=== PATIENT | female | born 1990 | race Caucasian/White ===

== ENCOUNTER 2021-12-30 12:40 | Emergency (ER) | payer BC, SELFPAY ==
[2021-12-30 12:45] VITALS: BP 133/80; PULSE 98; RESP 14; TEMP 36.5; O2SAT 100
--- NOTE | 2021-12-30 13:19 | ED.URI ---
HPI - URI/Sore Throat General Chief Complaint: Upper Respiratory Infection Stated Complaint: sinus infection Time Seen by Provider: 12/30/21 13:20 Source: patient, RN notes reviewed and old records reviewed Mode of arrival: ambulatory Limitations: no limitations History of Present Illness HPI Narrative: 31 year old female presents to [facility] care with complaints of head and sinus congestion for the past 3 days with headache. Patient reports that initially she though it was allergies and took some allergy medications with no improvement in her symptoms, She reports history of asthma and states that she has not experienced any shortness of breath or severe cough she has not had to use her inhaler recently. Patient denies any known fevers, chills or body aches,states fatigue. MD elicited complaint: rhinorrhea, nasal congestion and sinus pain Pertinent past history: asthma Onset (ago): day(s) (3) Related Data Home Medications Medication Instructions Recorded Confirmed fluticasone furoate 100 ea inhalation 12/30/21 mcg-vilanterol 25 mcg/dose inhalation powder (Breo Ellipta) spironolactone 100 mg tablet tablet 12/30/21 Allergies Allergy/AdvReac Type Severity Reaction Status Date / Time Sulfa (Sulfonamide Allergy Intermediate Rash Verified 12/30/21 13:04 Antibiotics) Review of Systems Review of Systems: CONSTITUTIONAL: Denies fever, chills, or sweats. EYES: Denies visual changes, redness, or discharge. ENT: Positive for rhinorrhea, congestion,no sore throat, or otalgia. CARDIOVASCULAR: Denies chest pain, palpitations, or edema. RESPIRATORY: Denies acute cough or dyspnea. GASTROINTESTINAL: Denies abdominal pain, nausea, vomiting, or diarrhea. GENITOURINARY: Denies dysuria or hematuria. SKIN: Denies rash or itching. MUSCULOSKELETAL: Denies back pain, joint pain, or myalgia. NEUROLOGIC: Positive for frontal headache,no numbness, or weakness. PSYCHIATRIC: Denies anxiety or depression. [facility] Past Medical History Medical History (Updated 12/31/21 @ 22:27 by Claudia oRcha NP) Asthma Social History Social History (Updated 12/31/21 @ 22:28 by Claudia Rocha NP) Smoking status: Never smoker Alcohol intake: current Alcohol use details: social Substance use: never Living arrangements: with family Gender identity (if verbalized by the patient): Female Comments At time of signature agree with nursing documentation of medical, surgical, family, and social history. There is no relevant family history that is pertinent to presenting complaint. Exam Narrative: GENERAL: Well-appearing, well-nourished, and in no acute distress. HEAD: Normocephalic, atraumatic. EYES: PERRLA and EOM ENT: Nares red with swollen turbinates, clear nasal rhinorrhea no epistaxis. Mucous membranes moist.TM's normal with good light reflex, throat mild redness with no lesion or exudates or tonsil swelling, uvula midline, post nasal discharge. NECK: Supple.no lymphadenopathy CHEST: Clear to auscultation. No respiratory distress.no acute cough or any tachypnea, SAO2 100% on room air HEART: Regular rate and rhythm. No murmur heard. Normal peripheral pulses. ABDOMEN: Soft, nontender, nondistended, normal active bowel sounds. EXTREMITIES: Normal range of motion. No edema. SKIN: Warm, dry, no rash. NEURO: No focal deficits. Alert and oriented x3. Course Course Level of Care: Express Care Visit Vital Signs Vital signs: Vital Signs Temperature 36.5 C 12/30/21 12:45 Pulse Rate 98 12/30/21 12:45 Respiratory Rate 14 12/30/21 12:45 Blood Pressure 133/80 12/30/21 12:45 Pulse Oximetry 100 12/30/21 12:45 Oxygen Delivery Room Air 12/30/21 12:45 Temperature 36.5 C 12/30/21 12:45 Pulse Rate 98 12/30/21 12:45 Respiratory Rate 14 12/30/21 12:45 Blood Pressure 133/80 12/30/21 12:45 Pulse Oximetry 100 12/30/21 12:45 Oxygen Delivery Room Air 12/30/21 12:45 MDM - URI/Sore Throat Differential
== END 2021-12-30 13:33 | disposition home or self-care (01) ==
PROVIDERS: Emergency Provider Registered Nurse
DX: J32.8 Other chronic sinusitis (principal); B96.89 Other specified bacterial agents as the cause of diseases classified elsewhere
CPT/HCPCS: 99213; G0463

== ENCOUNTER 2022-03-17 10:43 | Emergency (ER) | payer OTHER, BC, SELFPAY ==
--- NOTE | ~2022-03-17 | XR_ITS ---
XR foot RT min 3V DATE: 03/17/2022 11:02 INDICATION: Dropped a box on the right foot. Distal foot pain. TECHNIQUE: 4 views COMPARISON: None FINDINGS: No fracture, dislocation, periosteal reaction or bone destruction. Joint spaces are preserv ed. No erosive change. IMPRESSION: Negative Reviewed, dictated and finalized at location B. IMPRESSION: Negative
--- NOTE | 2022-03-17 10:49 | ED.LOWEXIN ---
HPI - Extremity Injury (Lower) General Stated Complaint: Right Foot Pain Time Seen by Provider: 03/17/22 11:15 Source: patient and RN notes reviewed Mode of arrival: ambulatory Limitations: no limitations History of Present Illness HPI Narrative: 31-year-old female presents with concern for right foot pain. Reports an hour and a half ago at work a heavy object fell on the top of her foot. She reports pain that radiates to the first toe and to the lateral foot. She denies any open skin. She denies decree strength, sensation, range of motion. Reports small bruising and swelling. MD complaint: foot injury Related Data Home Medications Medication Instructions Recorded Confirmed fluticasone furoate 100 ea inhalation 12/30/21 mcg-vilanterol 25 mcg/dose inhalation powder (Breo Ellipta) spironolactone 100 mg tablet tablet 12/30/21 norgestimate-ethinyl estradiol tablet 03/17/22 0.18 mg/0.215mg/0.25mg-35 mcg(28)tablet (Tri-Sprintec (28)) Allergies Allergy/AdvReac Type Severity Reaction Status Date / Time Sulfa (Sulfonamide Allergy Intermediate Rash Verified 12/30/21 13:04 Antibiotics) Review of Systems Review of Systems: CONSTITUTIONAL: Denies malaise, chills, sweats, or fever. SKIN: Denies rash or itching, open skin, laceration, abrasion, redness, warmth, swelling. MUSCULOSKELETAL: Reports right foot pain mild mild swelling NEUROLOGIC: Denies numbness, weakness All systems reviewed & are unremarkable except as noted in HPI and below PMFSH Past Medical History Medical History (Updated 03/17/22 @ 11:19 by Mercedez Perez NP) Asthma Social History Social History (Updated 12/31/21 @ 22:28 by Claudia Rocha NP) Smoking status: Never smoker Alcohol intake: current Alcohol use details: social Substance use: never Gender identity (if verbalized by the patient): Female Comments At time of signature, agree with nursing past medical, surgical, social and family history. There is no relevant family history pertinent to the presenting complaint Exam Narrative: GENERAL: Well-appearing, well-nourished, and in no acute distress. HEAD: Normocephalic, atraumatic. EYES: PERRLA, conjunctivae clear NECK: Supple. CHEST: Speaks in full sentences. No respiratory distress. HEART: Regular rate and rhythm. Normal and equal peripheral pulses. EXTREMITIES: Right foot, digits of right foot have normal strength and sensation, normal range of motion. Very minimal dorsal edema with very small amount of ecchymosis. 5/5 strength with ankle and digit flexion and extension. Normal sensation with sensitivity to light touch and pain. Mild dorsal tenderness. No open wounds, no skin tenting, no devitalized tissue or atrophy, no trophic changes, no obvious deformity, alignment normal, nearby joints and structures intact. Distal pulses palpable and equal bilaterally, skin warm, dry, pink. Capillary refill less than 3 seconds. SKIN: Warm, dry, no rash. NEURO: Alert and oriented x3. PSYCH: Normal mood and affect Course Course Emergency Course: Patient is aware of diagnosis, understands and agrees to treatment plan. Anticipatory guidance given. Patient agrees to follow-up as directed and is aware of reasons to seek care at the emergency department. Portions of this record may have been created with voice recognition software Level of Care: Express Care Visit Vital Signs Vital signs: Reviewed. MDM - Extremity Injury (Lower) MDM Narrative Medical decision making narrative: Patients injury and pain is consistent with musculoskeletal etiology. No signs of neurological or vascular compromise on exam. Compartments and tissues are soft without signs of compartment syndrome. Pain is felt appropriate for further evaluation on an outpatient basis. Critical Care Time Critical Care Time Critical Care Time: No Discharge Plan Discharge Clinical Impression: Contusion of foot, right Patient Disposition: Home, S
[2022-03-17 10:52] VITALS: BP 150/96; PULSE 92; RESP 16; TEMP 36.3; O2SAT 100
== END 2022-03-17 11:22 | disposition home or self-care (01) ==
PROVIDERS: Emergency Provider Nurse Practitioner
DX: S90.31XA Contusion of right foot, initial encounter (principal); W20.8XXA Other cause of strike by thrown, projected or falling object, initial encounter; Y99.0 Civilian activity done for income or pay; J45.909 Unspecified asthma, uncomplicated
CPT/HCPCS: 73630; 99213; G0463

== ENCOUNTER 2022-09-13 11:43 | Outpatient (CLI) | payer BC, SELFPAY ==
[2022-09-13 19:39] LABS: Kit Draw Collected
== END 2022-09-13 11:44 | disposition home or self-care (01) ==
LOC: ANHGOSHLAB 11:46
PROVIDERS: PCP Family Medicine; Visit Provider Family Medicine
DX: R53.83 Other fatigue (principal); R73.9 Hyperglycemia, unspecified; E55.9 Vitamin D deficiency, unspecified; Z13.220 Encounter for screening for lipoid disorders
CPT/HCPCS: 36415

== ENCOUNTER 2023-03-20 16:01 | Inpatient (IN) | payer BC, SELFPAY ==
[2023-03-20] VITALS (30 sets, daily range): BP systolic 133–173; BP diastolic 73–113; PULSE 100–113; TEMP 36.3–36.8; O2SAT 96–100; BMI 45.3
[2023-03-20] MEDS: DINOPROSTONE 10 MG VAG INSERT VAGINAL (17:30)
[2023-03-20 17:39] LABS: Basophils Absolute Auto 0.1 K/mm3 (0.0-0.1); Basophils Percent Auto 0.4 % (0.2-1.2); Eosinophils Absolute Auto 0.2 K/mm3 (0-0.3); Eosinophils Percent Auto 1.2 % (0-4.4); Hematocrit 31.6 % (37.0-47.0); Hemoglobin 10.2 g/dL (12.0-15.0); Immature Granulocyte Absolute 0.12 K/mm3 (0.00-0.031); Immature Granulocyte Percent A 0.9 % (0-0.5); Lymphocytes Absolute Auto 1.87 K/mm3 (0.9-3.2); Lymphocytes Percent Auto 14.4 % (18.3-44.2); Mean Corpuscular HGB Conc 32.3 g/dl (32-36); Mean Corpuscular Hemoglobin 28.6 pg (26-34); Mean Corpuscular Volume 88.5 fl (80-100); Mean Platelet Volume 11.5 fl (7.4-10.4); Monocytes Absolute Auto 1.2 K/mm3 (0.1-0.6); Monocytes Percent Auto 8.8 % (2.6-8.5); Neutrophils Absolute Auto 9.7 K/mm3 (1.3-6.7); Neutrophils Percent Auto 74.3 % (45.5-73.1); Platelet Count Result 317 k/mm3 (150-375); Red Blood Count 3.57 M/mm3 (4.2-5.4); Red Cell Distribution Width 13.8 % (11.5-14.5)
[2023-03-20 17:49] LABS: Alanine Aminotransferase 21 U/L (6-35); Albumin Level 3.5 g/dL (3.5-5.1); Alkaline Phosphatase 119 U/L (38-126); Anion Gap 6 mmol/L (8-16); Aspartate Amino Transferase 25 U/L (14-36); Bilirubin,Total 0.2 mg/dL (0.2-1.3); Blood Urea Nitrogen 8 mg/dL (7-17); Calcium 8.7 mg/dL (8.4-10.2); Carbon Dioxide 23 mmol/L (22-30); Chloride 103 mmol/L (98-107); Estimated CRCL calculation 149 ml/min; Estimated Glomerular Filt Rate > 60; Glucose 85 mg/dL (65-110); Potassium 3.8 mmol/L (3.4-5.0); Sodium 132 mmol/L (137-145); Uric Acid 4.3 mg/dL (2.5-7.5)
--- NOTE | 2023-03-20 18:16 | WPDANESEPP ---
Anes - Eval Pre Procedure Procedure: labor epidural Date/Time: 03/20/23 18:16 Surgeon: sully Preop Diagnosis: pain during labor Pre Op Diagnosis: Induction of Labor Patient Data Age: 32 Gender: F Height: 1.63 m Weight: 120 kg Last Vital Signs Temp 36.6 C 03/20/23 17:00 Pulse 102 H 03/20/23 18:01 BP 136/89 03/20/23 18:01 O2 Del Method Room Air 03/20/23 17:36 Allergies Allergy/AdvReac Type Severity Reaction Status Date / Time Sulfa (Sulfonamide Allergy Intermediate Rash Verified 03/05/23 13:25 Antibiotics) Home Medications Medication Instructions Recorded Confirmed Type albuterol sulfate 90 mcg/actuation 2 puff inhalation Q4H PRN Wheezing 09/13/22 03/05/23 History aerosol inhaler (Ventolin HFA) loratadine 10 mg tablet 10 mg PO DAILY 09/13/22 03/05/23 History prenat.vits,justina,[id number] 1 tablet PO DAILY 09/13/22 03/05/23 History cholecalciferol (vitamin D3) 125 125 mcg PO DAILY 10/18/22 03/05/23 History mcg (5,000 unit) capsule nifedipine 30 mg tablet,extended 30 mg PO DAILY 03/05/23 03/05/23 History release 24 hr fluticasone furoate 100 1 inh inhalation DAILY 03/20/23 03/20/23 History mcg-vilanterol 25 mcg/dose inhalation powder (Breo Ellipta) Laboratory Tests 03/20/23 16:30 WBC 13.0 H K/mm3 (4.5-10.0) RBC 3.57 L M/mm3 (4.2-5.4) Hgb 10.2 L g/dL (12.0-15.0) Hct 31.6 L % (37.0-47.0) MCV 88.5 fl (80-100) MCH 28.6 pg (26-34) MCHC 32.3 g/dl (32-36) RDW 13.8 % (11.5-14.5) Plt Count 317 k/mm3 (150-375) MPV 11.5 H fl (7.4-10.4) Immature Gran % (Auto) 0.9 H % (0-0.5) Neut % (Auto) 74.3 H % (45.5-73.1) Lymph % (Auto) 14.4 L % (18.3-44.2) [place] % (Auto) 8.8 H % (2.6-8.5) Eos % (Auto) 1.2 % (0-4.4) Baso % (Auto) 0.4 % (0.2-1.2) Lymph # (Auto) 1.87 K/mm3 (0.9-3.2) [place] # (Auto) 1.2 H K/mm3 (0.1-0.6) Eos # (Auto) 0.2 K/mm3 (0-0.3) Baso # (Auto) 0.1 K/mm3 (0.0-0.1) Abs Immat Gran (auto) 0.12 H K/mm3 (0.00-0.031) Absolute Neuts (auto) 9.7 H K/mm3 (1.3-6.7) Absolute Nucleated RBC 0.0 K/mm3 (0.0-0.012) Nucleated RBC % 0.0 % (0.0-0.2) Sodium 132 L mmol/L (137-145) Potassium 3.8 mmol/L (3.4-5.0) Chloride 103 mmol/L (98-107) Carbon Dioxide 23 mmol/L (22-30) Anion Gap 6 L mmol/L (8-16) BUN 8 mg/dL (7-17) Creatinine 0.60 L mg/dL (0.7-1.0) Estim Creat Clear Calc 149 ml/min Estimated GFR > 60 (59 - ) Glucose 85 mg/dL (65-110) Uric Acid 4.3 mg/dL (2.5-7.5) Calcium 8.7 mg/dL (8.4-10.2) Total Bilirubin 0.2 mg/dL (0.2-1.3) AST 25 U/L (14-36) ALT 21 U/L (6-35) Alkaline Phosphatase 119 U/L (38-126) Total Protein 7.0 g/dL (6.3-8.2) Albumin 3.5 g/dL (3.5-5.1) RPR Pending HIV 1&2 Ab/P24 Ag 4thGn Pending Blood Type Pending Antibody Screen Pending Patient hx anesthesia problems: none Family hx anesthesia problems: none Results Review: All pre-operative results and documents have been reviewed as part of the pre-operative evaluation. [facility] Past Medical History Medical History (Updated 03/20/23 @ 18:16 by Martha Guzman CRNA) Allergies Asthma IUP (intrauterine ), incidental Morbid obesity with BMI of 50.0-59.9, adult Family History Family History Father Asthma Hypertension Mother Diabetes mellitus Depression Anxiety Sibling Anxiety Depression Grandparent Depression Anxiety Cancer Social History Social History Smoking status: Never smoker Second hand tobacco smoke exposure: No Alcohol intake: current Alcohol use details: social Substance use: never Lack of Transportation: No Lack of Food: Never True Current Housing: I Have Housing Concerne
[2023-03-20 18:28] LABS: HIV 1/2 Ab P24 Ag Result Negative (Negative)
[2023-03-21] VITALS (259 sets, daily range): BP systolic 91–167; BP diastolic 56–110; PULSE 91–130; TEMP 36.3–36.8; O2SAT 95–100
[2023-03-21] MEDS: LACTATED RINGERS 1,000 ML 125 ML IV CONT ×3 (07:11→23:38)
[2023-03-21] MEDS: OXYTOCIN 30 UNITS/NS 500 ML 30 UNITS/500 ML BAG 6 UNITS IV CONT (07:12)
[2023-03-21] MEDS: NIFEdipine 30 MG TAB.ER.24 PO (07:13)
--- NOTE | 2023-03-21 07:24 | WPDOBADMIT ---
Obstetrics - Admit Note Admission Note: record reviewed. No pertinent additions to the history and/or any subsequent changes in the physical findings that are not consistent with the expected course of the were found.Chronic HTN,IOL at 38 weeks, SVE 1.5/70/-2 AROM moderate amount of clear, odorless fluid, anticipate vaginal delivery Additions to the history and/or subsequent changes in the physical findings follow. None.
[2023-03-21] MEDS: LABETALOL HCL 100 MG TABLET 200 MG PO ×2 (10:47→12:33)
[2023-03-21 13:53] LABS: Rapid Plasma Reagin Non-Reactive (NonReactive)
[2023-03-21] MEDS: CALCIUM CARBONATE (TUMS) 500 MG (200 MG ELEMENTAL) PO ×2 (14:42→20:54)
[2023-03-22] VITALS (423 sets, daily range): BP systolic 72–179; BP diastolic 30–109; PULSE 89–143; RESP 18; TEMP 36.6–37.5; O2SAT 91–100
[2023-03-22] MEDS: LACTATED RINGERS 1,000 ML 125 ML IV CONT ×3 (01:06→15:19)
[2023-03-22] MEDS: AMPICILLIN 2 GM/NS 100 ML 2 GM/100 ML BAG IVPB (01:08)
[2023-03-22] MEDS: PHENYLEPHRINE 1,000 MCG/10 ML SYRINGE 100 MCG IV PUSH ×3 (02:10→02:20)
[2023-03-22] MEDS: AMPICILLIN 1 GM/NS 50 ML 1 GM/50 ML BAG IVPB ×5 (05:00→21:07)
--- NOTE | 2023-03-22 06:14 | LDADM ---
This patient, Jessica Mosley, was admitted to Labor/Delivery/Recovery 102 on 03/20/23 at 16:01. Plans for labor, pain management and were discussed with patient. Patient/family oriented to hospital policies and general routines including ID bracelet, bed and alarms, visiting hours, pain management, procedures, bathroom and other care routines, personal items, smoking policy, room service/diet and guest tray routines, infant security routines, and visiting hours. Patient/Family are encouraged to report perceived risks to care and to ask questions if they do not understand what they are told or what they should do. See OBIX for further documentation.
--- NOTE | 2023-03-22 06:55 | PM.IMHP ---
H&P: HPI History of Present Illness Date/Time: 03/22/23 06:55 Chief Complaint: at 39.1 weeks gestation, IOL for chronic HTN, pt is comfortable with epidural. BP's are normotensive and denies headaches, visual changes and epigastric pain. has also been complicated by asthma,obesity, and circumvallate placenta. Review of Systems Review of Systems: All systems reviewed & are unremarkable except as noted in HPI and below PMFSH Past Medical History Medical History (Updated 03/20/23 @ 18:16 by Martha Guzman CRNA) Allergies Asthma IUP (intrauterine ), incidental Morbid obesity with BMI of 50.0-59.9, adult Family History Family History Father Asthma Hypertension Mother Diabetes mellitus Depression Anxiety Sibling Anxiety Depression Grandparent Depression Anxiety Cancer Social History Social History Smoking status: Never smoker Second hand tobacco smoke exposure: No Alcohol intake: current Alcohol use details: social Substance use: never Lack of Transportation: No Lack of Food: Never True Current Housing: I Have Housing Concerned About Future Housing: No Difficulty Paying Gas/Electric Bills: No Difficulty Paying for Meds: No Currently Unemployed: No Education: High School Diploma/GED Difficulty w/ Childcare or Family Care: No Living arrangements: with family Gender identity (if verbalized by the patient): Female Spiritual care concerns: No Meds Home Medications and Allergies Home Medications Medication Instructions Recorded Confirmed Type albuterol sulfate 90 mcg/actuation 2 puff inhalation Q4H PRN Wheezing 09/13/22 03/05/23 History aerosol inhaler (Ventolin HFA) loratadine 10 mg tablet 10 mg PO DAILY 09/13/22 03/05/23 History prenat.vits,justina,[id number] 1 tablet PO DAILY 09/13/22 03/05/23 History cholecalciferol (vitamin D3) 125 125 mcg PO DAILY 10/18/22 03/05/23 History mcg (5,000 unit) capsule nifedipine 30 mg tablet,extended 30 mg PO DAILY 03/05/23 03/05/23 History release 24 hr fluticasone furoate 100 1 inh inhalation DAILY 03/20/23 03/20/23 History mcg-vilanterol 25 mcg/dose inhalation powder (Breo Ellipta) Allergies Allergy/AdvReac Type Severity Reaction Status Date / Time Sulfa (Sulfonamide Allergy Intermediate Rash Verified 03/05/23 13:25 Antibiotics) Vital Signs Vital Signs - 24 hr 03/21/23 06:58 03/21/23 07:01 03/21/23 07:03 Temperature Pulse Rate 107 H Blood Pressure 148/105 H Pulse Oximetry 100 99 03/21/23 07:08 03/21/23 07:13 03/21/23 07:18 Temperature Pulse Rate Blood Pressure Pulse Oximetry 100 99 99 03/21/23 07:23 03/21/23 07:28 03/21/23 07:31 Temperature Pulse Rate 109 H Blood Pressure 162/110 H Pulse Oximetry 98 100 03/21/23 07:33 03/21/23 07:38 03/21/23 07:43 Temperature Pulse Rate Blood Pressure Pulse Oximetry 99 99 98 03/21/23 07:48 03/21/23 07:50 03/21/23 07:53 Temperature Pulse Rate 105 H Blood Pressure 165/109 H Pulse Oximetry 99 100 03/21/23 07:58 03/21/23 08:01 03/21/23 08:03 Temperature Pulse Rate 106 H Blood Pressure 164/109 H Pulse Oximetry 98 98 03/21/23 08:08 03/21/23 08:13 03/21/23 08:18 Temperature Pulse Rate Blood Pressure Pulse Oximetry 98 98 98 03/21/23 08:23 03/21/23 08:28 03/21/23 08:31 Temperature Pulse Rate 106 H Blood Pressure 157/99 H Pulse Oximetry 98 97 03/21/23 08:33 03/21/23 08:38 03/21/23 08:43 Temperature 36.4 C L Pulse Rate Blood Pressure Pulse Oximetry 98 98 98 03/21/23 08:48 03/21/23 08:53 03/21/23 08:58 Temperature Pulse Rate Blood Pressure Pulse Oximetry 99 98 98 03/21/23 09:01 03/21/23 09:03 03/21/23 09:08 Temperature Pulse Rate 104 H Blood Pressure 152/98 H
[2023-03-22] MEDS: ACETAMINOPHEN 500 MG TABLET 1000 MG PO (08:13)
[2023-03-22] MEDS: OXYTOCIN 30 UNITS/NS 500 ML 30 UNITS/500 ML BAG 6 UNITS IV CONT (10:09)
--- NOTE | 2023-03-22 14:53 | PC.NURSE ---
1258 - Introductions were made and mother shared how she would like to feed her baby with exclusive . Encouraged mother to place infant [id number] until the first feeding if infant is stable and to wait on the weight to help stabilize, reduce stress, and improve latching by allowing time to explore parent's chest using instincts. Education was shared on how to protect her milk supply with latching infant and/or using hand expression to remove milk if infant doesn't latch in the first hour, then finger feed colostrum to the infant to preserve breast focus. Demonstration given on how to hand express using tool. We discussed mothers questions and concerns. Resources provided with educational trifold for bonding and feeding infant. Mother voiced understanding of information, planning to meet again on the PP floor after delivery and to call if there is a request for assistance.
[2023-03-22] MEDS: LABETALOL HCL 100 MG TABLET 400 MG PO (16:13)
--- NOTE | 2023-03-22 18:00 | PM.OBPNVD ---
OB - PN: Subj Subjective Date/time seen: 03/22/23 18:00 SVE 8-9/90/0, pt comfortable FHR 135 min to moderate variability contractions irregular OB - PN: Obj Data Labs 03/20/23 16:30 03/20/23 16:30 OB - PN A/P Time Spent With Patient Time: Total time spent is greater than 50% in coordination of care (as documented) at patient's floor/unit and/or counseling patient:
[2023-03-22] MEDS: LABETALOL HCL INJ 100 MG/20 ML VIAL 20 MG IV PUSH (21:31)
[2023-03-22 22:14] LABS: Basophils Absolute Auto 0.1 K/mm3 (0.0-0.1); Basophils Percent Auto 0.3 % (0.2-1.2); Eosinophils Percent Auto 0.2 % (0-4.4); Hematocrit 32.6 % (37.0-47.0); Hemoglobin 10.6 g/dL (12.0-15.0); Immature Granulocyte Absolute 0.31 K/mm3 (0.00-0.031); Immature Granulocyte Percent A 1.2 % (0-0.5); Lymphocytes Absolute Auto 1.42 K/mm3 (0.9-3.2); Lymphocytes Percent Auto 5.4 % (18.3-44.2); Mean Corpuscular HGB Conc 32.5 g/dl (32-36); Mean Corpuscular Volume 89.3 fl (80-100); Mean Platelet Volume 11.3 fl (7.4-10.4); Monocytes Absolute Auto 2.4 K/mm3 (0.1-0.6); Monocytes Percent Auto 9.1 % (2.6-8.5); Neutrophils Absolute Auto 22.3 K/mm3 (1.3-6.7); Neutrophils Percent Auto 83.8 % (45.5-73.1); Platelet Count Result 333 k/mm3 (150-375); Red Blood Count 3.65 M/mm3 (4.2-5.4); Red Cell Distribution Width 14.9 % (11.5-14.5); White Blood Count 26.5 K/mm3 (4.5-10.0)
[2023-03-22] MEDS: MAGNESIUM SULF 4 GM/WATER100ML 4 GM/100 ML BAG IVPB (22:19)
[2023-03-22 22:23] LABS: Alanine Aminotransferase 27 U/L (6-35); Albumin Level 3.3 g/dL (3.5-5.1); Alkaline Phosphatase 124 U/L (38-126); Anion Gap 7 mmol/L (8-16); Aspartate Amino Transferase 30 U/L (14-36); Bilirubin,Total 0.8 mg/dL (0.2-1.3); Blood Urea Nitrogen 8 mg/dL (7-17); Calcium 8.3 mg/dL (8.4-10.2); Carbon Dioxide 20 mmol/L (22-30); Chloride 103 mmol/L (98-107); Estimated CRCL calculation 93 ml/min; Estimated Glomerular Filt Rate > 60; Glucose 104 mg/dL (65-110); Potassium 3.8 mmol/L (3.4-5.0); Sodium 130 mmol/L (137-145); Uric Acid 4.9 mg/dL (2.5-7.5)
[2023-03-22] MEDS: MAGNESIUM SULF 20GM/WATER500ML 500 ML 50 MG IV CONT (22:38)
[2023-03-22] MEDS: miSOPROStol 200 MCG TABLET 1000 MCG RECTAL (23:52)
[2023-03-22] MEDS: OXYTOCIN 30 UNITS/NS 500 ML 30 UNITS/500 ML BAG 125 UNITS IV CONT (23:57)
[2023-03-23] VITALS (62 sets, daily range): BP systolic 117–177; BP diastolic 78–108; PULSE 95–119; RESP 18; TEMP 36.4–37.2; O2SAT 95–100
[2023-03-23] MEDS: TRANEXAMIC ACID 1,000MG/ISO100 1,000 MG/100 ML BAG 200 MG IVPB
--- NOTE | 2023-03-23 00:08 | PM.OBPRVD ---
OB - Delivery Note Procedure Delivery date: 03/23/23 Procedure: Events: Chronic Hypertension Intrapartal Events: Other (preeclampsia with severe features) Induction method: AROM, Per Pitocin Protocol and Per Cervidil Protocol Delivery monitor: External FHT and Internal Uterine Route of delivery: Laceration Description: Perineal - 1st Degree Delivery repair: vicryl Specimen: Yes Quantitative Blood Loss (ml): 500 Anesthesia type: Epidural Disposition: Floor Narrative: plan to continue magnesium sulfate x 24 hours after delivery. pp hemorrhage due to atony, fundal massage, cytotec and TXA, hemostasis obtained Baby Date of : 03/23/23 Time of : 23:37 Weeks of gestation at delivery: 38 gender: Female Weight (pounds): 7 Weight (ounces): 9 presentation: vertex position: Left Occiput Anterior Placenta delivery description: Spontaneous Cord Vessel Description: 3 Vessels, Nuchal Cord, Tight (x1) and Clamped/Cut score one minute: 7 score five minutes: 8 Narrative: baby to warmer to be assessed by nurse and deliverer outside
[2023-03-23] MEDS: hydrALAZINE HCL 20 MG/ML VIAL 5 MG IV PUSH (00:56)
[2023-03-23] MEDS: CLINDAMYCIN 900 MG/D5W 50 ML 900 MG/50 ML PIGGYBACK 50 MG IVPB ×3 (00:57→17:06)
[2023-03-23] MEDS: LACTATED RINGERS 1,000 ML 125 ML IV CONT ×2 (01:02→18:04)
[2023-03-23] MEDS: GENTAMICIN SULFATE INJ 405 MG in DEXTROSE 5% 100 ML 110.13 MG IVPB (02:00)
--- NOTE | 2023-03-23 03:52 | PC.NURSE ---
Patient transferred to post room #279 via ( W/C ). Support person present. Oriented to unit, room, information board, rooming in, admission packet and security measures. Patient verbalizes understanding.
[2023-03-23] MEDS: AMPICILLIN 1 GM/NS 50 ML 1 GM/50 ML BAG IVPB ×5 (05:41→22:45)
[2023-03-23] MEDS: WITCH HAZEL 40 PADS 1 PAD (07:40)
[2023-03-23] MEDS: BENZOCAINE 20% AER SPR (*SP) 56 GM CAN 1 SPRAY (07:40)
--- NOTE | 2023-03-23 08:23 | P.PNOB_ITS ---
OB - PN: Subj Subjective Date/time seen: 03/23/23 08:23 Interval history: 03/22/23 Chronic HTN with development of preeclampsia in labor due to severe range blood pressures denies headache, visual changes, epigastric pain urine output good pain well managed magnesium sulfate and antibiotics OB - PN: Obj Data Labs 03/22/23 22:04 03/22/23 22:04 Labs: Laboratory Results - last 24 hr 03/22/23 22:04 WBC 26.5 H RBC 3.65 L Hgb 10.6 L Hct 32.6 L MCV 89.3 MCH 29.0 MCHC 32.5 RDW 14.9 H Plt Count 333 MPV 11.3 H Immature Gran % (Auto) 1.2 H Neut % (Auto) 83.8 H Lymph % (Auto) 5.4 L [place] % (Auto) 9.1 H Eos % (Auto) 0.2 Baso % (Auto) 0.3 Lymph # (Auto) 1.42 [place] # (Auto) 2.4 H Eos # (Auto) 0.0 Baso # (Auto) 0.1 Abs Immat Gran (auto) 0.31 H Absolute Neuts (auto) 22.3 H Absolute Nucleated RBC 0.0 Nucleated RBC % 0.0 Sodium 130 L Potassium 3.8 Chloride 103 Carbon Dioxide 20 L Anion Gap 7 L BUN 8 Creatinine 1.00 Estim Creat Clear Calc 93 Estimated GFR > 60 Glucose 104 Uric Acid 4.9 Calcium 8.3 L Total Bilirubin 0.8 AST 30 ALT 27 Alkaline Phosphatase 124 Total Protein 7.0 Albumin 3.3 L OB - PN A/P Plan day: 1 Plan: routine care Comments: rpt labs at noon continue oral blood pressure management antibiotics x 24 hours baby at [facility] co-managing with dr. virk Time Spent With Patient Time: Total time spent is greater than 50% in coordination of care (as documented) at patient's floor/unit and/or counseling patient: Review of Systems Review of Systems: All systems reviewed & are unremarkable except as noted in HPI and below Exam Const: General: cooperative and healthy appearing Chest: Chest palpation & inspection: normal inspection of the chest Resp: Effort & Inspection: normal respiratory effort Cardio: Rate: regular rate Rhythm: regular rhythm GI: Other: soft Skin: General skin exam: normal color Neuro: General: patient oriented x3 Extrem: Right lower extremity: edema Details: non-pitting and 1+ Left lower extremity: edema Details: 1+ Psych: Appearance: grossly normal Mental Status: mental status grossly normal
--- NOTE | 2023-03-23 08:23 | WPDANLDPN2 ---
Anes-Prog Note L&D Date/Time: 03/23/23 08:23 Neuro status: Neuro function grossly intact. Vital Signs: Last Vital Signs Temp 36.7 C 03/23/23 06:50 Pulse 100 03/23/23 06:50 Resp 18 03/23/23 06:50 BP 153/100 H 03/23/23 06:50 Pulse Ox 98 03/23/23 05:00 O2 Del Method Room Air 03/23/23 05:00 Pain score (VAS): 0 I/O: Intake & Output 03/22/23 03/23/23 03/23/23 23:59 07:59 15:59 Intake Total 1100 Output Total 2600 Balance 1100 -2600 Patient feedback: Patient satisfied with anesthetic care.
[2023-03-23] MEDS: MAGNESIUM SULF 20GM/WATER500ML 500 ML 50 MG IV CONT ×2 (08:52→18:03)
[2023-03-23] MEDS: NIFEdipine 30 MG TAB.ER.24 60 MG PO (09:06)
[2023-03-23] MEDS: LORATADINE 10 MG TABLET PO (10:10)
[2023-03-23] MEDS: MULTIVIT/MIN/PREN/FOL AC/IRON TABLET 1 TAB PO (10:10)
[2023-03-23] MEDS: DIBUCAINE 1% OINTMENT 30 GM TUBE 1 APPLIC TOPICAL (10:14)
[2023-03-23] MEDS: WITCH HAZEL 40 PADS 1 PAD TOPICAL (10:14)
[2023-03-23] MEDS: GENTAMICIN 80MG/SOD CHL 50 ML 80 MG/50 ML BAG 100 MG IVPB ×2 (10:49→19:41)
[2023-03-23 13:06] LABS: Basophils Absolute Auto 0.1 K/mm3 (0.0-0.1); Basophils Percent Auto 0.3 % (0.2-1.2); Eosinophils Absolute Auto 0.2 K/mm3 (0-0.3); Eosinophils Percent Auto 0.7 % (0-4.4); Hematocrit 30.7 % (37.0-47.0); Hemoglobin 9.8 g/dL (12.0-15.0); Immature Granulocyte Absolute 0.29 K/mm3 (0.00-0.031); Immature Granulocyte Percent A 1.3 % (0-0.5); Lymphocytes Absolute Auto 2.45 K/mm3 (0.9-3.2); Lymphocytes Percent Auto 10.8 % (18.3-44.2); Mean Corpuscular HGB Conc 31.9 g/dl (32-36); Mean Corpuscular Hemoglobin 28.2 pg (26-34); Mean Corpuscular Volume 88.5 fl (80-100); Mean Platelet Volume 11.3 fl (7.4-10.4); Monocytes Absolute Auto 1.7 K/mm3 (0.1-0.6); Monocytes Percent Auto 7.4 % (2.6-8.5); Neutrophils Absolute Auto 18.1 K/mm3 (1.3-6.7); Neutrophils Percent Auto 79.5 % (45.5-73.1); Platelet Count Result 313 k/mm3 (150-375); Red Blood Count 3.47 M/mm3 (4.2-5.4)
[2023-03-23 13:17] LABS: Alanine Aminotransferase 23 U/L (6-35); Alkaline Phosphatase 141 U/L (38-126); Anion Gap 6 mmol/L (8-16); Aspartate Amino Transferase 38 U/L (14-36); Bilirubin,Total 0.2 mg/dL (0.2-1.3); Blood Urea Nitrogen 7 mg/dL (7-17); Calcium 7.7 mg/dL (8.4-10.2); Carbon Dioxide 21 mmol/L (22-30); Chloride 106 mmol/L (98-107); Estimated CRCL calculation 129 ml/min; Estimated Glomerular Filt Rate > 60; Glucose 98 mg/dL (65-110); Potassium 3.3 mmol/L (3.4-5.0); Sodium 133 mmol/L (137-145)
[2023-03-23 13:19] LABS: Uric Acid 5.3 mg/dL (2.5-7.5)
[2023-03-23] MEDS: LABETALOL HCL 100 MG TABLET 200 MG PO ×2 (14:30→22:44)
[2023-03-23] MEDS: IBUPROFEN 600 MG TABLET PO (17:13)
[2023-03-23] MEDS: POLYSACCHARIDE IRON COMPLEX 150 MG CAPSULE PO (22:44)
[2023-03-24] MEDS: IBUPROFEN 600 MG TABLET PO ×2 (04:20→10:45)
[2023-03-24 04:31] VITALS: BP 122/86
[2023-03-24 05:28] LABS: Hematocrit 27.6 % (37.0-47.0); Mean Corpuscular HGB Conc 32.6 g/dl (32-36); Mean Corpuscular Hemoglobin 28.9 pg (26-34); Mean Corpuscular Volume 88.7 fl (80-100); Mean Platelet Volume 11.4 fl (7.4-10.4); Platelet Count Result 297 k/mm3 (150-375); Red Blood Count 3.11 M/mm3 (4.2-5.4); Red Cell Distribution Width 15.2 % (11.5-14.5); White Blood Count 13.3 K/mm3 (4.5-10.0)
[2023-03-24 05:44] LABS: Alanine Aminotransferase 21 U/L (6-35); Albumin Level 2.8 g/dL (3.5-5.1); Alkaline Phosphatase 111 U/L (38-126); Anion Gap 6 mmol/L (8-16); Aspartate Amino Transferase 33 U/L (14-36); Bilirubin,Total 0.1 mg/dL (0.2-1.3); Blood Urea Nitrogen 9 mg/dL (7-17); Calcium 7.4 mg/dL (8.4-10.2); Carbon Dioxide 21 mmol/L (22-30); Chloride 105 mmol/L (98-107); Estimated CRCL calculation 129 ml/min; Estimated Glomerular Filt Rate > 60; Glucose 79 mg/dL (65-110); Potassium 3.3 mmol/L (3.4-5.0); Sodium 132 mmol/L (137-145)
--- NOTE | 2023-03-24 08:13 | P.PNOB_ITS ---
OB - PN: Subj Subjective Date/time seen: 03/24/23 08:13 No complaints, no headache, no blurry vision no epigastric pain. Normal blood pressures today Interval history: 03/22/23 Chronic HTN with development of preeclampsia in labor due to severe range blood pressures denies headache, visual changes, epigastric pain urine output good pain well managed magnesium sulfate and antibiotics Patient comments: no complaints, pain well controlled and tolerating diet OB - PN: Obj Data Labs 03/24/23 04:28 03/24/23 04:28 Labs: Laboratory Results - last 24 hr 03/23/23 03/23/23 03/24/23 12:15 18:00 04:28 WBC 7.0 13.3 H RBC 3.47 L 3.11 L Hgb 9.8 L 9.0 L Hct 30.7 L 27.6 L MCV 88.5 88.7 MCH 28.2 28.9 MCHC 31.9 L 32.6 RDW 15.0 H 15.2 H Plt Count 313 297 MPV 11.3 H 11.4 H Immature Gran % (Auto) 1.3 H Neut % (Auto) 79.5 H Lymph % (Auto) 10.8 L [place] % (Auto) 7.4 Eos % (Auto) 0.7 Baso % (Auto) 0.3 Lymph # (Auto) 2.45 [place] # (Auto) 1.7 H Eos # (Auto) 0.2 Baso # (Auto) 0.1 Abs Immat Gran (auto) 0.29 H Absolute Neuts (auto) 18.1 H Absolute Nucleated RBC 0.0 Nucleated RBC % 0.0 Sodium 133 L 132 L Potassium 3.3 L 3.3 L Chloride 106 105 Carbon Dioxide 21 L 21 L Anion Gap 6 L 6 L BUN 7 9 Creatinine 0.70 0.70 Estim Creat Clear Calc 129 129 Estimated GFR > 60 > 60 Glucose 98 79 Uric Acid 5.3 Calcium 7.7 L 7.4 L Total Bilirubin 0.2 0.1 L AST 38 H 33 ALT 23 21 Alkaline Phosphatase 141 H 111 Total Protein 6.0 L 6.0 L Albumin 3.0 L 2.8 L Gentamicin Peak 3.0 L Gentamicin Trough 1.0 OB - PN A/P Assessment and Plan (1) Chronic hypertension with superimposed pre-eclampsia: Code(s): O11.9 - Pre-existing hypertension with pre-eclampsia, unspecified trimester Status: Acute Plan day: 2 Plan: routine care and discharge home Comments: 32-year-old patient. day 2. stable blood pressures, Procardia, labetalol, normal labs, no symptoms of preeclampsia, to discharge today. Time Spent With Patient Time: Total time spent is greater than 50% in coordination of care (as documented) at patient's floor/unit and/or counseling patient: Exam Const: General: comfortable and no acute distress Resp: Effort & Inspection: normal respiratory effort Auscultation: no rales, no rhonchi and no wheezes Cardio: Rate: regular rate Heart sounds: no click, no murmurs and no rubs GI: GI Palp: Yes Soft to palpation and No Tenderness to palpation present (GI) Auscultation: normal bowel sounds Extrem: General: normal to inspection, no pedal edema and no calf tenderness
--- NOTE | 2023-03-24 08:16 | PM.OBDSVD ---
DS: Admitting Diagnosis Discharge Date 03/24/2023 Admitting Diagnosis term , chronic hypertension DS: Discharge Diagnosis Discharge Diagnosis (1) Chronic hypertension with superimposed pre-eclampsia: Code(s): O11.9 - Pre-existing hypertension with pre-eclampsia, unspecified trimester Status: Acute OB - DS: Summary Hospital Course Hospital Course: chronic hypertension with superimposed preeclampsia, severe apnea Episode with hypoxia of fetus, transported to tertiary care center. OB Procedures : None, NST and PIH Mgmt OB Procedures Intrapartum: Spontaneous Vag Delivery OB Procedures: : Antibiotics Time Spent with Patient Time attestation: Total time spent providing and/or coordinating discharge services: DS: Data Data Completed and Pending Pending studies at discharge: Pending at discharge 03/23/23 10:52 Surgical [PTH] Routine Labs on day of discharge: Labs from last 24 hours 03/24/23 03/23/23 03/23/23 04:28 18:00 12:15 WBC 13.3 H 7.0 RBC 3.11 L 3.47 L Hgb 9.0 L 9.8 L Hct 27.6 L 30.7 L MCV 88.7 88.5 MCH 28.9 28.2 MCHC 32.6 31.9 L RDW 15.2 H 15.0 H Plt Count 297 313 MPV 11.4 H 11.3 H Immature Gran % (Auto) 1.3 H Neut % (Auto) 79.5 H Lymph % (Auto) 10.8 L [place] % (Auto) 7.4 Eos % (Auto) 0.7 Baso % (Auto) 0.3 Lymph # (Auto) 2.45 [place] # (Auto) 1.7 H Eos # (Auto) 0.2 Baso # (Auto) 0.1 Abs Immat Gran (auto) 0.29 H Absolute Neuts (auto) 18.1 H Absolute Nucleated RBC 0.0 Nucleated RBC % 0.0 Sodium 132 L 133 L Potassium 3.3 L 3.3 L Chloride 105 106 Carbon Dioxide 21 L 21 L Anion Gap 6 L 6 L BUN 9 7 Creatinine 0.70 0.70 Estim Creat Clear Calc 129 129 Estimated GFR > 60 > 60 Glucose 79 98 Uric Acid 5.3 Calcium 7.4 L 7.7 L Total Bilirubin 0.1 L 0.2 AST 33 38 H ALT 21 23 Alkaline Phosphatase 111 141 H Total Protein 6.0 L 6.0 L Albumin 2.8 L 3.0 L Gentamicin Peak 3.0 L Gentamicin Trough 1.0 Discharge Plan Discharge Attending physician on discharge: William Lopez Discharging Clinician: William Lopez Patient Disposition: Home, Self-Care Activity: pelvic rest Diet: regular Patient Instructions: Antibiotic Form Stand Alone Forms: General Discharge Information Follow-up/Referrals: William Lopez MD [Physician] - Discharge Medications: Continued albuterol sulfate [Ventolin HFA] 90 mcg/actuation HFA aerosol inhaler 2 puff inhalation Q4H PRN (Reason: Wheezing) prenat.vits,justina,[id number] Tablet 1 tablet PO DAILY loratadine 10 mg tablet 10 mg PO DAILY nifedipine 30 mg Tablet Extended Release 24hr 30 mg PO DAILY fluticasone furoate-vilanterol [Breo Ellipta] 100-25 mcg/dose blister with device 1 inh INHALATION DAILY cholecalciferol (vitamin D3) 125 mcg (5,000 unit) capsule 125 mcg PO DAILY Date of admission: 03/20/23 16:01 Primary Care Provider: Elsie Browning Admitting Provider: William Lopez Attending physician on admission: William Lopez Condition: Stable
[2023-03-24 10:45] VITALS: BP 140/83; PULSE 89; PULSE 93; RESP 14; TEMP 36.7; O2SAT 97
[2023-03-24] MEDS: LORATADINE 10 MG TABLET PO (10:45)
[2023-03-24] MEDS: POLYSACCHARIDE IRON COMPLEX 150 MG CAPSULE PO (10:45)
[2023-03-24] MEDS: NIFEdipine 30 MG TAB.ER.24 60 MG PO (10:45)
[2023-03-24] MEDS: MULTIVIT/MIN/PREN/FOL AC/IRON TABLET 1 TAB PO (10:45)
[2023-03-24] MEDS: LABETALOL HCL 100 MG TABLET 200 MG PO (10:45)
== END 2023-03-24 11:30 | disposition home or self-care (01) | DRG 807 ==
LOC: ANHLDR 16:06 → ANHOB2 03-23 04:30
PROVIDERS: Admitting Provider Obstetrics & Gynecology; PCP Family Medicine; Referring Provider Advanced Practice Midwife; Visit Provider Obstetrics & Gynecology
DX: O11.4 Pre-existing hypertension with pre-eclampsia, complicating childbirth (principal); Z37.0 Single live birth; O10.92 Unspecified pre-existing hypertension complicating childbirth; Z3A.38 38 weeks gestation of pregnancy; O69.1XX0 Labor and delivery complicated by cord around neck, with compression, not applicable or unspecified; O42.12 Full-term premature rupture of membranes, onset of labor more than 24 hours following rupture; O70.0 First degree perineal laceration during delivery; O99.214 Obesity complicating childbirth; E66.01 Morbid (severe) obesity due to excess calories; J45.909 Unspecified asthma, uncomplicated; O99.52 Diseases of the respiratory system complicating childbirth; O43.113 Circumvallate placenta, third trimester
CPT/HCPCS: 36415; 80053; 80170; 84550; 85025; 85027; 86592; 86703; 86850; 86900; 86901; A9270; G0432; J0290; J0360; J1580; J2371; J2590; J2795; J3475; J7120

== ENCOUNTER 2023-07-28 09:59 | Emergency (ER) | payer BC, SELFPAY ==
[2023-07-28 10:05] VITALS: BP 160/96; PULSE 125; RESP 16; TEMP 36.7; O2SAT 99
--- NOTE | 2023-07-28 10:57 | ED.URI ---
HPI - URI/Sore Throat General Chief Complaint: Upper Respiratory Infection Stated Complaint: Congestion Time Seen by Provider: 07/28/23 10:58 Source: patient, RN notes reviewed and old records reviewed Mode of arrival: ambulatory Limitations: no limitations History of Present Illness HPI Narrative: 32 year old female who presents to [facility] care with complaints of cough, headache, chest congestion, sinus congestion with drainage for the past 2 days, Patient reports that her cough is worse at night does have asthma and takes Brio daily and has Albuterol inhaler. Patient reports she has been taking DayQuil that is not really helping and takes daily Loratadine. Patient reports that she doesn't have a fever, has no body aches but positive for headach with chest feeling heavy with cough. . MD elicited complaint: cough, rhinorrhea, nasal congestion and other (headache) Onset (ago): day(s) (2) Severity: moderate Able to tolerate fluids by mouth: Yes Treatments prior to arrival: other (DayQuil, loratadine, daily Brio) Related Data Home Medications Medication Instructions Recorded Confirmed albuterol sulfate 90 mcg/actuation 2 puff inhalation Q4H PRN Wheezing 09/13/22 07/28/23 aerosol inhaler (Ventolin HFA) loratadine 10 mg tablet 10 mg PO DAILY 09/13/22 07/28/23 cholecalciferol (vitamin D3) 125 125 mcg PO DAILY 10/18/22 07/28/23 mcg (5,000 unit) capsule nifedipine 30 mg tablet,extended 30 mg PO DAILY 03/05/23 07/28/23 release 24 hr fluticasone furoate 100 1 inh inhalation DAILY 03/20/23 07/28/23 mcg-vilanterol 25 mcg/dose inhalation powder (Breo Ellipta) drospirenone (contraceptive) 4 mg 1 tablet PO DAILY 07/28/23 07/28/23 (28) tablet (Slynd) Allergies Allergy/AdvReac Type Severity Reaction Status Date / Time Sulfa (Sulfonamide Allergy Intermediate Rash Verified 07/28/23 10:38 Antibiotics) Review of Systems Review of Systems: CONSTITUTIONAL: Denies malaise, chills, sweats, or fever. EYES: Denies visual changes, redness, or discharge. ENT: Reports rhinorrhea, congestion, sinus pain, no otalgia and no sore throat. CARDIOVASCULAR: Denies chest pain, palpitations, or edema. RESPIRATORY: Reports cough.? Denies dyspnea.Reports chest heavy with cough GASTROINTESTINAL: Denies abdominal pain, nausea, vomiting, diarrhea SKIN: Denies rash or itching. MUSCULOSKELETAL: Denies myalgia. NEUROLOGIC: Reports headache. All systems reviewed & are unremarkable except as noted in HPI and below PMFSH Past Medical History Medical History (Updated 07/30/23 @ 10:54 by Claudia Rocha NP) Allergies Asthma Essential hypertension IUP (intrauterine ), incidental Morbid obesity with BMI of 50.0-59.9, adult Surgical History Surgical History (Updated 07/30/23 @ 10:51 by Claudia Rocha NP) History of tonsillectomy Family History Family History Father Asthma Hypertension Mother Diabetes mellitus Depression Anxiety Sibling Anxiety Depression Grandparent Depression Anxiety Cancer Social History Social History Smoking status: Never smoker Second hand tobacco smoke exposure: No Alcohol intake: current Alcohol use details: social Substance use: never Lack of Transportation: No Lack of Food: Never True Current Housing: I Have Housing Concerned About Future Housing: No Difficulty Paying Gas/Electric Bills: No Difficulty Paying for Meds: No Currently Unemployed: No Education: High School Diploma/GED Difficulty w/ Childcare or Family Care: No Living arrangements: with family Gender identity (if verbalized by the patient): Female Spiritual care concerns: No Comments At time of signature, agree with nursing past medical, surgical, social and family history. There is no relevant family history pertinent to the presenting complaint
== END 2023-07-28 11:18 | disposition home or self-care (01) ==
PROVIDERS: Emergency Provider Registered Nurse; PCP Family Medicine
DX: J06.9 Acute upper respiratory infection, unspecified (principal); R05.9 Cough, unspecified; Z20.822 Contact with and (suspected) exposure to COVID-19; J45.909 Unspecified asthma, uncomplicated; I10 Essential (primary) hypertension; E66.01 Morbid (severe) obesity due to excess calories; Z68.41 Body mass index [BMI] 40.0-44.9, adult
CPT/HCPCS: 87426; 87804; 99213; C9803; G0463

== ENCOUNTER 2025-07-23 11:26 | Outpatient (CLI) | payer OTHER, SELFPAY ==
--- OUTSIDE RECORDS SUMMARY | 2025-07-23 12:42 | XMS_ITS | Clinical Summary ---
Author Organization [facility] Address [address] [place] [address] Care Team Providers Care Harness Installer Name Role Phone Unavailable Primary Care Provider Unavailabl e Source Comments [facility],non-owned Affiliates and Associated Physician Practices is amultiple site organization consisting of ambulatory clinics and hospital sitesin [place], [place], [place] and [place]. This disclosure is being madepursuant to the Care Everywhere program and may not contain all information available regarding this patient. Last updated 18.[facility] Social History Tobacco Use Types Packs/Day Years Used Date Smoking Tobacco: Never Assessed Comments No Sex and Gender Information Value Date Recorded Sex Assigned at Not on file Legal Sex Female 3:01 PM HIGH [employer]ESS[employer] CLE[employer]ER Gender Identity Not on file Sexual Orientation Not on file Plan of Treatment Health Maintenance Due Date Last Done Comments HIV SCREENING 2007 HEPATITIS C SCREENING 08/01/2010 DTAP/TDAP/TD VACCINES (1 - Tdap) 2011 HEPATITIS B VACCINE (1 of 3 - 19+ 3-dose series) 2011 PAP SMEAR 2013 HPV VACCINE (1 - 3-dose SCDM series) 2019 DEPRESSION SCREENING 08/06/2024 COVID-19 VACCINE (1 - 2024-2 6 season) 2025 INFLUENZA VACCINE (#1) 2025 ZOSTER VACCINE (1 of 2) 2042 HIB VACCINE Aged Out No longer eligi ble based on patient's age to complete this topic MENINGOCOCCAL (Group B) VACC INE SHARED DECISION-MAKING Aged Out No longer eligibl e based on patient's age to complete this topic MENINGOCOCCAL GROUPS A/C/Y/W VACCINE Aged Out No longer eligible b ased on patient's age to complete this topic PNEUMOCOCCAL VACCINE Aged Out No long er eligible based on patient's age to complete this topic
--- OUTSIDE RECORDS SUMMARY | 2025-07-23 12:43 | XMS_ITS | Encounter Summary ---
Author Organization [facility] Address [address] [place] [address] Phone Care Team Providers Care Barrow Worker Name Role Phone Marvin Schuler MD Primary Care Provider [phone] Reason for Visit * Reason Comments Medication Refill Encounter Details Date Type Department Care Team ([facility] Contact Info) Description 12/03/2021 Refill [facility] [address] [place] [address] Marvin Schuler MD [facility] [address] [address] Medication Refill Social History Tobacco Use Types Packs/Day Years Used Date Smoking Tobacco: Never Smokeless Tobacco: Never Alcohol Use Standard Drinks/Week Comments No 0 (1 standard drink = 0.6 oz pur e alcohol) PHQ-2 Answer Date Recorded Total Score - Questions 1-9 0 10/06 Comments No Sex and Gender Information Value Date Recorded Sex Assigned at Not on file Legal Sex Female 1:25 AM CDT Gender Identity Not on file Sexual Orientation Not on file documented as of this encounter Plan of Treatment Not on file documented as of this encounter Visit Diagnoses Not on filedocumented in this encounter Additional Health Concerns Assessment Noted Time PHQ-9 Depression Total Score: 0 11/04/19 21 3:00 PM CDT documented as of this encounter Care Teams Barrow Worker Relationship Specialty Start Date End Date Marvin Schuler MD [address] [address] PCP - General Internal Medicine 01/18/18 documented as of this encounter
--- OUTSIDE RECORDS SUMMARY | 2025-07-23 12:43 | XMS_ITS | Data Portability ---
Author Organization [facility] [place] Address [address] [place] [address] Care Team Providers Care Commercial Designer Name Role Phone PRASANTH MARSHALL Primary Care Provider [phone] Assessment Encounter Date Assessment Date Assessment LastModified by Organization Details LastModified Time 10/26/2023 10/26/2023 Annual gynecological exam performed. Patient will come back in a year unless there are new symptoms. Take Calcium with Vitamin D 1200mg daily if not receiving in daily diet. It is strongly advised to have an annual flu shot and up can obtain at most pharmacies. If you have not had a TDap shot in the last 10 years you should obtain one as well. Discussed with patient & provided with information regarding Gardisil vaccine to prevent the 4 strains for HPV that cause cervical cancer if under age 26. Encourage safe sexual practices, to use condoms and limit partners if not already in a monogamous relationship. Do monthly self breast exams. Have mammogram yearly or every other year depending on family history. BRCA testing is now available for patients with strong genetic history of female cancer. If interested contact the office. Engage in daily exercise of low impact aerobic exercise 45-60 minutes 4-5 times weekly. Avoid tobacco and illicit drugs as well as using moderation with alcohol intake less than 1-2 8 oz beverages daily. This lifestyle behavior pattern will lead to less health conditions and longer life span. If BMI greater than 25 weight watchers or dietary consult advised. Patient received above instructions, and questions have been answered. If you have any questions please call or respond to this email. Patient was made aware of the patient portal and may obtain a paper copy of today's plan if desired. [email or web address] Not available 10/26/2023 16:53:44 Plan of Treatment Reminders Order Date Submit Date Provider Last Modified By Organization Details Last Modified Time Details Appointments None recorded. Lab None recorded. Referral None recorded. Procedures None recorded. Surgeries None recorded. Imaging US, obstetric, transvagina l [address] [facility], [address], [place], [address], 18:52:01 US, obstetric, transvagina l [address] [place], [place] [address], [address], [place], [address], 18:44:39 Medication Orders None recorded. Patient TargetsNo targets recorded. Patient InstructionsNo instructions recorded. Reason for Referral None Reported. Results Created Date Observation Date Name Description Value Unit Range Abnormal Flag Note LastModifiedBy Organization Detail LastModifiedTime 10/26/1910/26/2023 IMAGE GUIDE D PAP AND HPV REGAR DLESS image guided Pap, HPV regardless of Pap result SEE RESULT S BELOW CASE REPOR T: Cytol ogy Gynec ologi justina Repor t Case: [id number] Autho delta floyd Provi kevyn: Merly Tompkins NP Colle cted: 10/25 1614 Order ing Locat ion: [place] Patho logy Recei kael: 10/28 0701 First Scree n: Jessica Corado Rescr een: Willian [place] ed, CT Speci men: Scree phoenix Pap - Image d, Cervi x STATE MENT OF ADEQU ACY: Satis facto ry for evalu ation Trans forma tion zone compo nent prese nt FINAL DIAGN OSIS: Negat mariah for Intra epith elial Lesio n or Shreya weaver (NIL) . Elect sarahy goodwin anjana d by Willian [place] ed, CT on 2023 at 8:43 PM ----- ----- ----- ----- ----- ----- ----- ----- ----- ----- ----- ----- ----- ----- ----- ----- ----- ---- HPV RESUL TS: HPV mRNA E6/E7 : No HPV mRNA Detec anuj NOTE: This high risk HPV mRNA assay detec ts fourt een high- risk HPV types (16, 18, 31, 33, 35, 39, 45, 51, 52, 56, 58, 59, 66, 68) witho ut diffe renti ation . COMME NT: This speci men was revie wed by a Cytot echno logis t and/o r Patho logis t (as indic ated in this repor t) after evalu ation using the Thinp rep Imagi ng Syste m. CLINI JUSTINA INFOR MATIO N: Menst rual Statu s: LMP (if appli cable ): Clini justina Histo ry/Pr eviou s Pap: Type of Neopl cordell (if appli cable ): Signi fican t Clini justina Findi ngs: Other Histo ry: Hormo marti (if appli cable ): PAP EDUCA LEISA L NOTE: The Pap Test is a scree phoenix test with an inher ent false negat mariah rate. Liqui d-bas ed sampl ing may decre ase, but will not elimi julianna, false negat mariah resul ts. A negat mariah resul t does not precl ude the prese nce and/o r devel opmen t of disea se, since the prese nce of abnor mal cells in the sampl e depen ds on the locat ion of the lesio n and sampl ing techn ique. Chris nued regul ar scree phoenix is the best metho d of cance r preve ntion . If repor anuj cytol ogic findi ng do not corre late with physi justina and/o r histo rical findi ngs, furth er inves tigat ion is recom ant d, as beau marquez nted. Not Available [facility] (Lab) [address], [place], [address], 10/30/2023 21:46:58 01/15/20 25 01/14/2025 BHCG, QUANT ITATI VE B-HCG 5715.0 mIU/m L 0.0-4. 9 high This assay was perfo rmed using [employer] n reage nts and test kits. Value s obtai nabil with other assay metho ds or kits canno t be used inter [facility] . Refer ence Range s: Non-p regna nt, preme nopau ida women : 0.0-4 .9 mIU/m L Postm enopa usal women : 0.0-7 .0 mIU/m L Fiordaliza l Pregn oh: Gesta leisa l Age bHCG Conc. - mIU/m L 3 Weeks 5.8 - 71.7 4 Weeks 9.5 - 750 5 Weeks 217-7 138 6 Weeks 158 - 31,79 5 7 Weeks 3,697 - 162,5 63 8 Weeks 32,06 5 - 149,5 71 9 Weeks 63,80 3 - 151,4 10 10 Weeks 46,50 9 - 186,9 77 12 Weeks 27,83 2 - 210,6 12 14 Weeks 13,95 0 - 62,53 0 15 Weeks 12,03 9 - 70,97 1 16 Weeks 9,040 - 56,45 1 17 Weeks 8,175 - 55,86 8 18 Weeks 8,099 - 58,17 6 Not Available [facility] (Lab) [address], [place], [address], 01/15/2025 03:11:16 01/17/2001/16/2025 BHCG, QUANT ITATI VE B-HCG 6290.0 mIU/m L 0.0-4. 9 high This assay was perfo rmed using [employer] reage nts and test kits. Value s obtai nabil with other assay metho ds or kits canno t be used inter fonseca eay . Refer ence Range s: Non-p regna nt, preme nopau ida women : 0.0-4 .9 mIU/m L Postm enopa usal women : 0.0-7 .0 mIU/m L Fiordaliza l Pregn oh: Gesta leisa l Age bHCG Conc. - mIU/m L 3 Weeks 5.8 - 71.7 4 Weeks 9.5 - 750 5 Weeks 217-7 138 6 Weeks 158 - 31,79 5 7 Weeks 3,697 - 162,5 63 8 Weeks 32,06 5 - 149,5 71 9 Weeks 63,80 3 - 151,4 10 10 Weeks 46,50 9 - 186,9 77 12 Weeks 27,83 2 - 210,6 12 14 Weeks 13,95 0 - 62,53 0 15 Weeks 12,03 9 - 70,97 1 16 Weeks 9,040 - 56,45 1 17 Weeks 8,175 - 55,86 8 18 Weeks 8,099 - 58,17 6 Not Available [facility] (Lab) [address], [place], [address], 01/17/2025 06:33:08 01/22/20 25 01/21/2025 [facility] [place] QUANT ITATI VE B-HCG 5901.0 mIU/m L 0.0-4. 9 high This assay was perfo rmed using [employer] n reage nts and test kits. Value s obtai nabil with other assay metho ds or kits canno t be used inter fonseca eably . Refer ence Range s: Non-p regna nt, preme nopau ida women : 0.0-4 .9 mIU/m L Postm enopa usal women : 0.0-7 .0 mIU/m L Fiordaliza l Pregn oh: [facility]m L 3 Weeks 5.8 - 71.7 4 Weeks 9.5 - 750 5 Weeks 217-7 138 6 Weeks 158 - 31,79 5 7 Weeks 3,697 - 162,5 63 8 Weeks 32,06 5 - 149,5 71 9 Weeks 63,80 3 - 151,4 10 10 Weeks 46,50 9 - 186,9 77 12 Weeks 27,83 2 - 210,6 12 14 Weeks 13,95 0 - 62,53 0 15 Weeks 12,03 9 - 70,97 1 16 Weeks 9,040 - 56,45 1 17 Weeks 8,175 - 55,86 8 18 Weeks 8,099 - 58,17 6 Not Available [facility] (Lab) [address], [place], [address], 01/22/2025 05:05:13 01/28/20 25 01/27/2025 BHCG, QUANT ITATI VE B-HCG 3991.0 mIU/m L 0.0-4. 9 high This assay was perfo rmed using [employer] reage nts and test kits. Value s obtai nabil with other assay metho ds or kits canno t be used inter fonseca eably . Refer ence Range s: Non-p regna nt, preme nopau ida women : 0.0-4 .9 mIU/m L Postm enopa usal women : 0.0-7 .0 mIU/m L Fiordaliza l Pregn oh: Gesta leisa l Age bHCG Conc. - mIU/m L 3 Weeks 5.8 - 71.7 4 Weeks 9.5 - 750 5 Weeks 217-7 138 6 Weeks 158 - 31,79 5 7 Weeks 3,697 - 162,5 63 8 Weeks 32,06 5 - 149,5 71 9 Weeks 63,80 3 - 151,4 10 10 Weeks 46,50 9 - 186,9 77 12 Weeks 27,83 2 - 210,6 12 14 Weeks 13,95 0 - 62,53 0 15 Weeks 12,03 9 - 70,97 1 16 Weeks 9,040 - 56,45 1 17 Weeks 8,175 - 55,86 8 18 Weeks 8,099 - 58,17 6 Not Available [facility] (Lab) [address], [place], [address], 01/28/2025 06:20:26 02/04/20 25 02/03/2025 BHCG, QUANT ITATI VE B-HCG 1846.0 mIU/m L 0.0-4. 9 high This assay was perfo rmed using [employer] reage nts and test kits. Value s obtai nabil with other assay metho ds or kits canno t be used inter fonseca eably . Refer ence Range s: Non-p regna nt, preme nopau ida women : 0.0-4 .9 mIU/m L Postm enopa usal women : 0.0-7 .0 mIU/m L Fiordaliza l Pregn oh: Gesta leisa l Age bHCG Conc. - mIU/m L 3 Weeks 5.8 - 71.7 4 Weeks 9.5 - 750 5 Weeks 217-7 138 6 Weeks 158 - 31,79 5 7 Weeks 3,697 - 162,5 63 8 Weeks 32,06 5 - 149,5 71 9 Weeks 63,80 3 - 151,4 10 10 Weeks 46,50 9 - 186,9 77 12 Weeks 27,83 2 - 210,6 12 14 Weeks 13,95 0 - 62,53 0 15 Weeks 12,03 9 - 70,97 1 16 Weeks 9,040 - 56,45 1 17 Weeks 8,175 - 55,86 8 18 Weeks 8,099 - 58,17 6 Not Available [facility] (Lab) [address], [place], [address], 02/04/2025 04:40:29 02/11/20 25 02/10/2025 BHCG, QUANT ITATI VE B-HCG 27.5 mIU/m L 0.0-4. 9 high This assay was perfo rmed using [employer] reage nts and test kits. Value s obtai nabil with other assay metho ds or kits canno t be used inter fonseca eably . Refer ence Range s: Non-p regna nt, preme nopau ida women : 0.0-4 .9 mIU/m L Postm enopa usal women : 0.0-7 .0 mIU/m L Fiordaliza l Pregn oh: Gesta leisa l Age bHCG Conc. - mIU/m L 3 Weeks 5.8 - 71.7 4 Weeks 9.5 - 750 5 Weeks 217-7 138 6 Weeks 158 - 31,79 5 7 Weeks 3,697 - 162,5 63 8 Weeks 32,06 5 - 149,5 71 9 Weeks 63,80 3 - 151,4 10 10 Weeks 46,50 9 - 186,9 77 12 Weeks 27,83 2 - 210,6 12 14 Weeks 13,95 0 - 62,53 0 15 Weeks 12,03 9 - 70,97 1 16 Weeks 9,040 - 56,45 1 17 Weeks 8,175 - 55,86 8 18 Weeks 8,099 - 58,17 6 Not Available [facility] (Lab) [address], [place], [address], 02/11/2025 06:05:08 02/27/20 25 02/26/2025 BHCG, QUANT ITATI VE B-HCG 0.5 mIU/m L 0.0-4. 9 This assay was perfo rmed using [employer] n reage nts and test kits. Value s obtai nabil with other assay metho ds or kits canno t be used inter fonseca eably . Refer ence Range s: Non-p regna nt, preme nopau ida women : 0.0-4 .9 mIU/m L Postm enopa usal women : 0.0-7 .0 mIU/m L Fiordaliza l Pregn oh: Gesta leisa l Age bHCG Conc. - mIU/m L 3 Weeks 5.8 - 71.7 4 Weeks 9.5 - 750 5 Weeks 217-7 138 6 Weeks 158 - 31,79 5 7 Weeks 3,697 - 162,5 63 8 Weeks 32,06 5 - 149,5 71 9 Weeks 63,80 3 - 151,4 10 10 Weeks 46,50 9 - 186,9 77 12 Weeks 27,83 2 - 210,6 12 14 Weeks 13,95 0 - 62,53 0 15 Weeks 12,03 9 - 70,97 1 16 Weeks 9,040 - 56,45 1 17 Weeks 8,175 - 55,86 8 18 Weeks 8,099 - 58,17 6 Not Available [facility] (Lab) [address], [place], [address], 02/27/2025 09:22:49 01/15/2001/14/2025 US, obste tric, trans vagin al No observ ation record ed. [email or web address] [place] [address], [place], [address], 01/14/2025 14:38:32 01/15/20 25 01/14/2025 US, obste tric, trans vagin al No observ ation record ed. [email or web address] [address], [place], [address], 01/20/2025 19:28:09 01/22/20 25 01/21/2025 US, obste tric, trans vagin al No observ ation record ed. [email or web address] [place] [address], [place], [address], 01/21/2025 18:48:09 01/22/20 25 01/21/2025 US, obste tric, trans vagin al No observ ation record ed. [email or web address] [address], [place], [address], 01/21/2025 21:02:40 Result Notes None recorded. Problems Name Problem SNOMED Code Status Onset Date Resolution Date Notes Provider Name and Address Organization Details Recorded Time Asthma 582740795 Completed inhaled combo inhaler and rescue inhaler Rex Veronica [facility] 3 14:41:50 Chronic hyperten braeden in obstetri c context 2483306 Completed nifedipi ne antenata l testing Rex Veronica [facility] 3 14:41:50 Spinal muscular atrophy 3083481 Completed + Carrier FOB (JONATHAN) NEGATIVE Rex Veronica [facility] 3 14:41:50 Placenta circumva llata 7359544 Completed serial growth [facility] Glenys [facility] 3 14:41:50 Human papillom a virus infectio n 320837586 Completed 2022 Rex Veronica [facility] 3 14:41:50 Acid reflux 758688110 Completed [facility] 3 14:41:50 Pregnanc y 12892968 Completed 202204/02/2023 Rex Veronica [facility], [facility] 3 14:41:57 Hyperten sive disorder 85725144 Active 2024 Evy Rhoades bailee, [facility] 5 09:52:00 Asthma 758631151 Active 2024 Evyreji morocho, [facility] 5 09:52:17 Human papillom avirus deoxyrib onucleic acid detected , high risk on cervical specimen 536697767 Active 2024 ascus HPV Evy Rhoades [facility], [facility] 5 09:52:32 History of abnormal cervical Papanico laou smear 763068016 Active 2024 ascus HPV Evy Rhoades [facility], [facility] 5 09:52:52 Problem Notes None recorded. Procedures Surgical History Date Name Laterality Status Provider Name and Address Organization Details Recorded Time 10/26/19 24 Date of Last Pap Smear completed Evy Burketttz [facility] 10/26/2023 16:30:51 10/19/19 23 Colposcopy completed Merly Gilmore CNM [address], [place], [address], [facility] 10/18/2022 17:10:35 08/06/19 00 tonsilectomy/a denoids completed Evy Burketttz [facility] 09/05/2022 11:06:24 Imaging Results None recorded. Procedure Notes None recorded. Medical Equipment None Reported. Allergies Allergen ID Allergen Name Allergen Category Reaction Reaction Severity Criticality Documentation Date Start Date Code Code System Note Provider Name and Address Organization Details Recorded Time sulfabenz amide Not available Not available Not available Not available 09/05/2022 89133 RxNorm Evy Rhoades null, [facility] 3 11:03:31 Substance with sulfonami de structure and antibacte rial mechanism of action (substanc e) medicatio n Not available Not available Not available 09/19/2022 64532 8003 SNOMED Lary Lovell null, [facility] 3 10:09:10 Medications Name Sig Start Date Stop Date Status Note LastModified by Organization Details LastModified Time nifedipine ER 30 mg tablet,exte nded release 24 hr TAKE 1 TABLET BY MOUTH EVERY DAY 2024 active Not Available Not Available Not Avai lable latanoprost 0.005 % eye drops INSTILL 1 DROP INTO EACH EYE AT BEDTIME 01/16 completed Not Available Not Available Not Available labetalol 200 mg tablet TAKE 1 TABLET BY MOUTH EVERY 12 HOURS 10/25 completed Not Available Not Available Not Available azithromyci n 250 mg tablet 09/05 completed Not Available Not Available Not Available prednisone 20 mg tablet TAKE 1 TABLET BY MOUTH TWICE DAILY 10/25 completed Not Available Not Available Not Available spironolact one 100 mg tablet TAKE 1 TABLET BY MOUTH DAILY 09/05 completed Not Available Not Available Not Available nifedipine ER 30 mg tablet,exte nded release TAKE 1 TABLET BY MOUTH EVERY DAY 03/30 completed Not Available Not Available Not Available triamcinolo ne acetonide 0.1 % topical cream APPLY CREAM EXTERNALL Y TWICE DAILY TO AFFECTED AREA(S) 01/16 completed Not Available Not Available Not Available nifedipine ER 60 mg tablet,exte nded release 24 hr TAKE 1 TABLET BY MOUTH EVERY DAY 10/25 completed Not Available Not Available Not Available fluticasone propionate 50 mcg/actuati on nasal spray,suspe nsion SHAKE LIQUID AND USE 1 SPRAY IN EACH NOSTRIL DAILY 03/30 completed Not Available Not Available Not Available azithromyci n 500 mg tablet TAKE 2 TABLETS BY MOUTH ALL AT ONCE 10/09 completed Not Available Not Available Not Available Tri-Sprinte c (28) 0.18 mg(7)/0.215 mg(7)/0.25 mg(7)-0.035 mg tablet TAKE 1 TABLET BY MOUTH DAILY PATIENT NEEDS TO SCHEDULE AN APPOINTME NT BEFORE NEXT REFILL 09/05 completed Not Available Not Available Not Available loratadine 04/18 completed Not Available Not Available Not Available active Not Available Not Avai lable Not Available Baby Aspirin 10/25 completed Not Available Not Available Not Available Breo Ellipta 100 mcg-25 mcg/dose powder for inhalation INHALE 1 PUFF BY MOUTH ONCE DAILY. APPOINTME NT REQUIRED FOR FUTURE REFILLS active Not Available Not Available No t Available Slynd 4 mg (28) tablet TAKE 1 TABLET BY MOUTH EVERY DAY 01/16 completed Not Available Not Available Not Available ID NOW COVID-19 Test Kit TEST DIRECTED TODAY 09/05 completed Not Available Not Available Not Available Vitals Date Recorded Body height Body mass index (BMI) Body weight Systolic And Diastolic Provider Name and Address Organization Details Last Updated DateTime 10/26/2023 168.91 cm 37.5 kg/m2 266191.8 g 133/89 mm[Hg] [facility] 10/26/2023 16:28:23 Date Recorded Body height Body mass index (BMI) Body weight Systolic And Diastolic Provider Name and Address Organization Details Last Updated DateTime 01/16/2025 168.91 cm 40.2 kg/m2 569662.87 g 144/99 mm[Hg] Evy [facility] 01/16/2025 09:51:29 Date Recorded Body height Body mass index (BMI) Body weight Systolic And Diastolic Systolic And Diastolic Provider Name and Address Organization Details Last Updated DateTime 04/18/2023 168.91 cm 40.7 kg/m2 309203.6 5 g 137/90 mm[Hg] 148/100 mm[Hg] Evy [facility] 10:59:44 Social History Question Answer Notes LastModified by Organizat ion Details LastModified Time Tobacco Smoking Status Never Smoker Waleska morocho [facility] 04/18/2023 10:33:58 If You Are , What Was Your Level Of Alcohol Consumption Prior To ? Occasional [email or web address] Information not available 04/18/2023 Are You Blind Or Do You Have Difficulty Seeing? No [email or web address] Information n ot available 09/05/2022 What Is Your Level Of Caffeine Consumption? Occasional [email or web address] Information not available 09/05/2022 How Much Tobacco Do You Chew? None [email or web address] Information not available 09/05/2022 In The 14 Days Before Symptom Onset, Have You Had Close Contact With A Laboratory-confirm ed COVID-19 While That Case Was Ill? No [email or web address] Information n ot available 09/05/2022 In The 14 Days Before Symptom Onset, Have You Had Close Contact With A Person Who Is Under Investigation For COVID-19 While That Person Was Ill? No [email or web address] Information not available 09/05/2022 Have You Been To An Area Known To Be High Risk For COVID-19? No [email or web address] Information not available 09/05/2022 Are You Deaf Or Do You Have Serious Difficulty Hearing? No Information not available 09/05/2022 What Is The Highest Grade Or Level Of School You Have Completed Or The Highest Degree You Have Received? [id number] [email or web address] Information not available 09/05/2022 Are There Any Guns Present In Your Home? Yes [email or web address] Information not available 09/05/2022 Do You Use Protection During Sex? No [email or web address] Information not available 09/05/2022 Do You Use Your Seat Belt Or Car Seat Routinely? Yes [email or web address] Information not available 09/05/2022 Do You Have Smoke And Carbon Monoxide Detectors In Your Home? Yes [email or web address] Information not available 09/05/2022 How Much Tobacco Do You Smoke? No [email or web address] Information not available 09/05/2022 Do You Use Sunscreen Routinely? No [email or web address] Information not available 09/05/2022 Has Tobacco Cessation Counseling Been Provided? No [email or web address] Information not available 04/18/2023 Have You Used IV Drugs? No [email or web address] Information not available 09/05/2022 Do You Have Difficulty Walking Or Climbing Stairs? No [email or web address] Information not available 04/18/2023 Sex: Unknown Functional Status Question Answer Note LastModified by Organizat ion Details LastModified Time Do you use any illicit or recreational drugs? No [email or web address] Information not available 09/05/2022 Do you or have you ever used any other forms of tobacco or nicotine? No [email or web address] Information not available 04/18/2023 What is your level of alcohol consumption? None [email or web address] Information not available 09/12/2022 Are you able to walk independently without assistance or assistive devices? YESWOREST [email or web address] Information not available 09/05/2022 Are you able to care for yourself independently? 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 No [email or web address] Information not available 04/18/2023 What is your exercise level? Occasional [email or web address] Information not available 09/05/2022 Mental Status Question Answer Note LastModified by Organization D etails LastModified Time Do you feel stressed (tense, restless, nervous, or anxious, or unable to sleep at night)? [id number] [email or web address] Information not available 09/05/2022 Family History Relationship Description Onset Age of this Age Resolved Age Notes LastModified by Organization Details LastModified Time Maternal Grandmother Disorder of thyroid gland Not available 09/05 11:03:31 Maternal Grandmother Depressive disorder Not available 09/05 11:03:31 Mother Disorder of thyroid gland Not available 09/05 11:03:31 Mother Depressive disorder [email or web address] Not available 09/05 11:03:31 Mother Diabetes mellitus [email or web address] Not available 09/05 11:03:31 Father Asthma [email or web address] Not available 09/05/2022 11:03:31 Father Hypertensive disorder [email or web address] Not available 09/05 11:05:38 Brother Depressive disorder [email or web address] Not available 09/05 11:03:31 Paternal Grandmother Malignant neoplasm of ovary Not available 2024 09:33:45 Medical History Condition Response Allergies (Food, seasonal, environmental ) Y Other N Blood Transfusion N Drug/Latex Allergies/Reactions N Breast Cancer N Dermatologic Disorders N Lung Disease N Defects or Inherited Disease N Breast Problem N Gestational Diabetes N Hematologic disorders N Anesthesia Complications N History of STI Y Deep Vein Thrombosis N Polycystic ovary syndrome N Anxiety Disorder N Autoimmune disease N Arthritis N Infertility N Polyps N Acid Reflux (GERD) N History of abnormal pap Y Cancer N Stroke N Varicosities N Neurologic/Epilepsy N Endometriosis N High Cholesterol N Headaches N Fibromyalgia N Kidney Disease N Heart Problems N Kidney or Bladder Problems N Thyroid Problems N GI Problems N Eating Disorder N Anemia N Art (IVF or FET) N Psychiatric Illness N Ovarian Cancer N Diabetes N Pulmonary (TB, Asthma) N Hepatitis/Liver Disease N No Past Medical History N Eczema N Urinary Tract Infection N Abuse/Domestic Violence N Asthma Y Trauma/Violence N Depression/ depression N Heart Disease N Pre-Eclampsia N Hypertension Y Osteoporosis N Thrombophilias N Gynecological History Statement/Question Response Abnormal Pap Y Date of Last Mammogram Date of LMP 11/24/2024 On BCP's at Conception? N N Was last menstrual period normal Y STIs/STDs Y HPV Vaccine Y Duration of Flow (days) 4 Current Control Method Frequency of Cycle (Q days) 21 Sexually Active? Y Date of DEXA bone scan Age of first menstrual cycle 16 Date of Last Pap Smear 10/26/2023 Sexual Problems? N LMP Definite N Obstetrics History GPAL:G 1 P 1 0 0 1 Type Value Full Term 1 Living 1 Total 1 Past Encounters Encounter ID Performer Location Encounter Start Date Encounter Closed Date Diagnosis/Indication Diagnosis SNOMED-CT Code Diagnosis ICD10 Code Diagnosis IMO Codes Diagnosis Note [id number] Tacho Virk MD [place] [address],[place] [address] 09/05/2022 09:44:09 09/05/2022 10:49:12 [id number] Alba Ospina CNM [place] [address],[place] [address] 09/05/2022 09:44:31 09/05/2022 22:05:48 Amenorrhea 88487969 N91.2 Gynecologi c examination 14073325 Z01.419 test positive 863752017 Z32.01 Risk factors addressed: Tobacco Cessation, Safe Sexual Practices, environmen jevon, work hazards, travel restrictio ns, seat belt use.Eat a health well balanced diet, avoid alcohol, tobacco, and street drugs.Enga ge in daily low impact exercise, avoid temperatur e extremes, and cat, rodent, and bird feces.Avoi d travel to areas where zika virus is a concern.Of fered cf/sma/nip t. Desires all testing today. Handouts given and discussed with patient.Ch ildbirth classes recommende d.New OB sheet given.If previous , counseling .Pt verbalizes that she understand s the importance of above instructio ns.All questions were answered.P atient reminded to have annual well woman examinatio n and address preventati ve healthcare . Chronic hy pertension in obstetric context 9636175 O16.9 Discussed hypertensi on in and additional surveilanc e. Pt will start baby aspirin. Will also start procardia 30xl once daily. Pt will monitor bp at home and return in 1 week for bp check. She will call if any low bp or any bp over 160/105. Spoke with Dr Dia about history of hypertensi on and asthma, current medication s, and possible interactio ns. She would like me to start her on Procardia xl 30mg daily and send referral for MFM Asthma in [id number] J45.909 Currently using Breo Ellipta. Discussed with Dr Dai. Will schedule with MFM. [id number] Alba Ospina CNM [place] [address],[place] [address] 09/12/2022 10:38:41 09/12/2022 14:56:57 Chronic hypertension complicating AND/OR reason for care during 02469794 O16.9 Continue on procardia. Will have mfm visit soon. Follow up here in 2 weeks or sooner if any concerns. [id number] MD Ghazala Jerez [address],[place] [address] 09/19/2022 09:34:05 09/19/2022 11:14:02 screening 666961434 Z36.82 [id number] MD Ghazala Jerez [address],[place] [address] 09/19/2022 09:34:49 09/19/2022 10:53:05 Routine care 527998580 Z34.01 [id number] Alba Ospina [facility] [address],[place] [address] 10/09/2022 15:30:44 10/09/2022 16:29:00 Routine care 855453934 Z34.92 [id number] [facility] [address],[place] [address] 10/18/2022 16:01:42 10/18/2022 17:13:47 Atypical squamous cells of undetermined significance on cervical Papanicolaou smear 294031192 R87.610 f/u next ob visit and will rpt pap pp Human roger llomavirus deoxyribonucleic acid detected, high risk on cervical specimen 694059192 R87.810 [id number] Tacho Virk MD [place] [address],[place] [address] 11/15/2022 16:16:56 11/15/2022 18:19:21 screening for malformation 521065952 Z36.3 [id number] Merly Gilmore CNM [place] [address],[place] [address] 11/15/2022 16:18:30 11/16/2022 10:41:37 Routine care 377443986 Z34.92 [id number] Tacho Virk MD [place] [address],[place] [address] 12/14/2022 16:04:48 12/14/2022 17:00:12 screening 896990171 Z36.2 [id number] Tacho Virk MD [place] [address],[place] [address] 12/14/2022 16:05:12 12/15/2022 14:45:32 Routine care 646118164 Z34.01 [id number] Merly Gilmore CNM [place] [address],[place] [address] 01/12/2023 09:34:19 01/12/2023 11:01:58 Routine care 703830320 Z34.92 [id number] Tacho Virk MD [place] [address],[place] [address] 01/12/2023 09:36:37 01/12/2023 10:44:39 Chronic hypertension complicating AND/OR reason for care during 46682835 O16.9 O99.213 O43.119 Z3A.28 [id number] Merly Gilmore [facility] [address],[place] [address] 01/26/2023 10:31:54 01/26/2023 11:44:51 Routine care [id number] Z34.92 [id number] Tacho Virk MD [place] [address],[place] [address] 02/09/2023 14:30:00 02/09/2023 15:08:24 Chronic hypertension complicating AND/OR reason for care during 33108941 O16.9 O99.213 O43.119 Z3A.28 [id number] Tacho Virk MD [place] [address],[place] [address] 02/09/2023 14:31:21 02/09/2023 15:39:59 Chronic hypertension complicating AND/OR reason for care during [id number] O10.013 O99.213 Z3A.32 [id number] Merly Gilmore [facility] [address],[place] [address] 02/09/2023 14:58:31 02/12/2023 10:55:47 Routine care 571770633 Z34.92 [id number] Tacho Virk MD [place] [address],[place] [address] 1 02/16/2023 09:58:41 02/16/2023 11:06:48 Chronic hypertension complicating AND/OR reason for care during [id number] O10.013 O99.213 Z3A.32 [id number] Tacho Virk MD [place] [address],[place] [address] 1 02/16/2023 09:58:55 02/16/2023 11:22:34 Chronic hypertension complicating AND/OR reason for care during 01908536 O10.013 O99.213 Z3A.33 [id number] Merly Gilmore [facility] [address],[place] [address] 02/16/2023 09:59:12 02/16/2023 12:32:51 Routine care 739236360 Z34.92 [id number] Tacho Virk MD [place] [address],[place] [address] 02/23/2023 09:26:18 02/23/2023 10:39:23 Chronic hypertension complicating AND/OR reason for care during 27137631 O10.013 O99.213 Z3A.33 [id number] Tacho Virk MD [place] [address],[place] [address] 1 02/23/2023 09:26:40 02/23/2023 11:34:17 Chronic hypertension complicating AND/OR reason for care during 38091021 O10.013 O99.213 Z3A.34 [id number] Merly Gilmore [facility] [address],[place] [address] 02/23/2023 09:26:56 02/23/2023 11:11:23 Routine care 483949600 Z34.92 [id number] Tacho Virk MD [place] [address],[place] [address] 03/02/2023 09:29:04 03/02/2023 10:14:15 Chronic hypertension complicating AND/OR reason for care during 53711916 O10.013 O99.213 Z3A.34 [id number] Tacho Virk MD [place] [address],[place] [address] 03/02/2023 10:02:56 03/02/2023 11:14:52 Chronic hypertension complicating AND/OR reason for care during 83333269 O10.013 O99.213 Z3A.35 [id number] Merly Gilmore, [facility] [address],[place] [address] 03/02/2023 10:03:33 03/02/2023 11:00:49 Routine care 180251026 Z34.92 [id number] Tacho Virk MD [place] [address],[place] [address] 03/09/2023 09:28:37 03/09/2023 10:58:45 Chronic hypertension complicating AND/OR reason for care during 95073970 O10.013 O99.213 Z3A.35 [id number] Tacho Virk MD [place] [address],[place] [address] 03/09/2023 09:29:19 03/09/2023 14:57:17 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.9 Z3A.36 [id number] Merly Gilmore [facility] [address],[place] [address] 03/09/2023 09:29:36 03/09/2023 11:04:46 Routine care 145919952 Z34.92 [id number] Tacho Virk MD [place] [address],[place] [address] 03/16/2023 09:30:47 03/16/2023 10:52:01 Chronic hypertension complicating AND/OR reason for care during 63205937 O10.013 O99.213 Z3A.35 [id number] MD Ghazala Jerez [address],[place] [address] 03/16/2023 09:31:13 03/16/2023 10:50:03 Maternal obesity complicating , childbirth and the puerperium, antepartum 7848861288 07 O16.9 Z3A.37 [id number] Merly Gilmore [facility] [address] [place] [address] 1 03/16/2023 09:31:30 03/16/2023 10:39:18 Routine care 864370406 Z34.92 [id number] Merly Gilmore [facility] [address] [place] [address] 03/30/2023 09:57:01 03/30/2023 10:09:28 Hypertensive disorder 96282250 I10 Past pregn oh history of pre-eclampsia 0143026909 52328 Z87.59 [id number] Merly Gilmore [facility] [address] [place] [address] 04/18/2023 10:33:39 04/18/2023 14:11:22 care 333181607 Z39.2 start slynd give one month to be effectiveC hronic HTN- check bp at home x 1 week rn to call if stable just continue procardia [id number] Merly Gilmore [facility] [address] [place] [address] 10/26/2023 16:06:32 10/26/2023 16:55:05 Gynecologic examination 45654927 Z01.419 [id number] Tacho Virk MD [place] [address] [place] [address] 01/14/2025 09:58:53 01/14/2025 11:26:32 Uncertain viability of 170995385 O36.80X0 Z3A.01 [id number] Merly Gilmore [facility] [address] [place] [address] 01/16/2025 09:33:34 01/16/2025 10:59:53 Amenorrhea 94907948 N91.2 [id number] plan rpt labs today and rpt us on sunday [id number] Tacho Virk MD [place] [address],[place] [address] 01/21/2025 16:20:50 01/21/2025 17:57:57 Uncertain viability of [id number] O36.80X0 O02.81 Z3A.01 [id number] Health Concerns Section Related Observation LastModified by Organization Detai ls LastModified Time None Recorded Concern Status LastModified by Organization Details LastModified Time None Recorded Advance Directives Directive None Recorded Payers Insurance Date Sequence Insurance Name Policy Number Policy Shelton Covered Member ID Shelton Member ID Guarantor Name 01/18/2025 1 [facility] [id number] Jessica Dimitri [id number] Jessica Dimitri 10/23/2023 1 [facility] ([facility] [id number] Jessica Dimitri [id number] Jessica Dimitri Notes Date Note Type Note Provider Name and Address Organization Details Recorded Time 3 text/html VisitReported by PatientHPIFor quality, patient reportsnsvd. For context, patient reportscomplications of : pih,complications of labor: pre-eclampsia, complications: none,feeding choice: breast and bottle,good support from partner/family, andresumed menstrual bleeding no. For associated symptoms, patient reportsno abnormal bleeding,no vaginal discharge,no pelvic pain,laceration well healed,no constipation,no fecal incontinence,no dysuria,no urinary incontinence,no fever,no problems,no mastitis, andnormal mood. For contraception plan, patient reportsprogesterone only pill.baby at home out of nicu doing well, wants pop, stopped labetalol monitoring at home no sxsROS as noted in the HPI [facility]y [facility] 04/18/2023 20:02:20 4 text/html Annual GYNReported by PatientHistoryFor history, patient reportsno gynecologic complaints.Genitourinary symptomsFor menstrual cycle, patient reportsnormal menses. For urinary symptoms, patient reportsno hematuriaandno incontinence. For vulva, patient reportsno genital lesion. For vagina, patient reportsnormal vaginal discharge.Breast symptomsFor breast, patient reportsno breast pain,no breast lump, andno nipple discharge.Endocrine symptomsFor sexual complaints, patient reportsno sexual complaints,no pain during intercourse, andnormal libido. For menopausal symptoms, patient reportsno menopausal symptomsandnormal vaginal lubrication.Psychological symptomsFor psychological symptoms, patient reportsno depression,no anxiety, andno pmdd.Preventative measuresFor preventive measures, patient reportsencourage self breast examination,encourage regular exercise, andencourage no tobacco use.happy with slynd, skipped a couple cycles, getting this year and then may want another ! baby doing well!hx abnl papROS as noted in the HPI Merly Gilmore CNM [address], [place], [address], [facility] 10/26/2023 16:54:02 text/html ROS as noted in the HPI amenorrhea, cycles irreg since november when had + then negative UPT. currently +UPT US no FHR, hcg doneno cramping or bleeding Merly Gilmore CNM [address], [place], [address], [facility] 01/16/2025 10:46:52 OBGyn Episode Ob Episode Information Episode Created Date Number of Fetuses Patient Bloodtype Patient rh Status Prepregnancy Weight lbs Domestic Partner Domestic Partner Phone Father Name Head Packager Status 09/19/19 23 1 O Positive 235 CLOSED Fetus Data First Name Last Name Admitted to NICU Weight (g) Sex Living Outcome Pediatric Complications Fetus ID Race Codes Race Delivery Type 3430.28 95 F true Full Term [id number] Vaginal Delivery Problems Problem Notes Problem Name Start Date End Date Resolution Snomed Code Not e Acid reflux MEDICATION 244337070 tums an d pepcid Asthma 279578199 inhaled co mbo inhaler and rescue inhaler Chronic hypertension in obstetric context 4613426 nifedipine testing 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 666939 7 + Carrier FOB (JONATHAN) NEGATIVE Placenta circumvallata 4572259 serial growth Dio Calculation Initial Dio Date Initial Exam Date Initial Exam Provider Initial Ultrasound Date Last Menstrual Period Date Ultra Sound Weeks Gestation 04/02/2023 09/19/2022 09/05/202206/26/2022 10 Eighteen To Twenty Week Dio Update Ultra Sound Date Fundal Height At Umbil Quickening Date Ultra Sound Latest Weeks Gestation Final Dio Confirmed By Final Dio Confirmed Date Final Dio Date Ultra Sound Latest Days Gestation 0 [email or web address] 09/19/2022 04/02/20 23 0 Pre-veronica Flowsheet Flowsheet Date 09/19/2022 Tobias Score Blood Edema Fundus Height Fundus Units Glucose Ketones Leukocytes Nitrite Labor Signs Protein Cervic Dilation Cervic Effacement Cervic Station 12 Type Weight in lbs Pre/Post Dialysis Refused Weight 236.932718307491 BP Diastolic BP Location Tested BP Systolic BP Type 103 L arm 144 sitting Fetus Heart Rate Present A 167 Fetus Movement Comments This patient is a 32-year-ol d 1 at 12 weeks gestation presents for initial care. She has hypertension and asthma to wcomplicate her . They are both independent and well controlled. Her primary care doctor and myself will manage these to problems. She had normal ultrasound today, she has normal genetic testing. She will begin routine care. She understands the details of care. She understands there will be monitoring and enhance care due to her problems. Flowsheet Date 10/09/2022 Tobias Score Blood Edema Fundus Height Fundus Units Glucose Ketones Leukocytes Nitrite Labor Signs Protein Cervic Dilation Cervic Effacement Cervic Station neg none none trace Type Weight in lbs Pre/Post Dialysis Refused Weight 241.38680892290 BP Diastolic BP Location Tested BP Systolic BP Type 88 126 Fetus Heart Rate Present A 155 Fetus Movement A No Comments patient is here for test of cure for chlamydia. Pt and partner were both treated and have abstained. Urine sent. No symptoms. Pt doing well. Flowsheet Date 10/18/2022 Tobias Score Blood Edema Fundus Height Fundus Units Glucose Ketones Leukocytes Nitrite Labor Signs Protein Cervic Dilation Cervic Effacement Cervic Station neg none none trace Type Weight in lbs Pre/Post Dialysis Refused Weight 239.268575414222 BP Diastolic BP Location Tested BP Systolic BP Type 91 158 Fetus Heart Rate Present Fetus Movement A Yes Comments OB Colpo. see note, also did visit, dr. virk said ok to do anatomy here, bp's at home 130/80-90's. precautions reviewed. colpo done, nausea resolving f/u 4 weeks Flowsheet Date 11/15/2022 Tobias Score Blood Edema Fundus Height Fundus Units Glucose Ketones Leukocytes Nitrite Labor Signs Protein Cervic Dilation Cervic Effacement Cervic Station Type Weight in lbs Pre/Post Dialysis Refused BP Diastolic BP Location Tested BP Systolic BP Type Fetus Heart Rate Present Fetus Movement Comments Flowsheet Date 11/15/2022 Tobias Score Blood Edema Fundus Height Fundus Units Glucose Ketones Leukocytes Nitrite Labor Signs Protein Cervic Dilation Cervic Effacement Cervic Station neg none none trace Type Weight in lbs Pre/Post Dialysis Refused Weight 242.134685573308 BP Diastolic BP Location Tested BP Systolic BP Type 87 137 Fetus Heart Rate Present Fetus Movement A Yes Comments anatomy incomplete efw 43%, doing well, denies complaints, education and precautions given f/u with anatomy in 4 weeks Flowsheet Date 12/14/2022 Tobias Score Blood Edema Fundus Height Fundus Units Glucose Ketones Leukocytes Nitrite Labor Signs Protein Cervic Dilation Cervic Effacement Cervic Station Type Weight in lbs Pre/Post Dialysis Refused BP Diastolic BP Location Tested BP Systolic BP Type Fetus Heart Rate Present Fetus Movement Comments Flowsheet Date 12/14/2022 Tobias Score Blood Edema Fundus Height Fundus Units Glucose Ketones Leukocytes Nitrite Labor Signs Protein Cervic Dilation Cervic Effacement Cervic Station Type Weight in lbs Pre/Post Dialysis Refused Weight 247.636833820077 BP Diastolic BP Location Tested BP Systolic BP Type 90 R arm 140 sitting 88 L arm 136 sitting Fetus Heart Rate Present A 154 Fetus Movement A Yes Comments no complaints, no problems, ultrasound completed, to return 4 weeks for a diabetes screen, recent spotting with intercourse Flowsheet Date 01/12/2023 Tobias Score Blood Edema Fundus Height Fundus Units Glucose Ketones Leukocytes Nitrite Labor Signs Protein Cervic Dilation Cervic Effacement Cervic Station neg none none trace Type Weight in lbs Pre/Post Dialysis Refused Weight 255.388373943700 BP Diastolic BP Location Tested BP Systolic BP Type 90 136 Fetus Heart Rate Present Fetus Movement A Yes Comments efw 56%, anatomy complete, a ntenatal testing at 32 weeks, doing well, disc rec delivery around 38 weeks for CHTN, wants to try without pain meds, precautions and education done, GCT today Flowsheet Date 01/12/2023 Tobias Score Blood Edema Fundus Height Fundus Units Glucose Ketones Leukocytes Nitrite Labor Signs Protein Cervic Dilation Cervic Effacement Cervic Station Type Weight in lbs Pre/Post Dialysis Refused BP Diastolic BP Location Tested BP Systolic BP Type Fetus Heart Rate Present Fetus Movement Comments Flowsheet Date 01/26/2023 Tobias Score Blood Edema Fundus Height Fundus Units Glucose Ketones Leukocytes Nitrite Labor Signs Protein Cervic Dilation Cervic Effacement Cervic Station neg none 32 none trace Type Weight in lbs Pre/Post Dialysis Refused Weight 257.962245215001 BP Diastolic BP Location Tested BP Systolic BP Type 87 131 Fetus Heart Rate Present A 150 Fetus Movement A Yes Comments patient states that having s ome back pain. increase stretches, hydration, ok for chiro, start testing next visit Flowsheet Date 02/09/2023 Tobias Score Blood Edema Fundus Height Fundus Units Glucose Ketones Leukocytes Nitrite Labor Signs Protein Cervic Dilation Cervic Effacement Cervic Station Type Weight in lbs Pre/Post Dialysis Refused BP Diastolic BP Location Tested BP Systolic BP Type Fetus Heart Rate Present Fetus Movement Comments Flowsheet Date 02/09/2023 Tobias Score Blood Edema Fundus Height Fundus Units Glucose Ketones Leukocytes Nitrite Labor Signs Protein Cervic Dilation Cervic Effacement Cervic Station Type Weight in lbs Pre/Post Dialysis Refused BP Diastolic BP Location Tested BP Systolic BP Type Fetus Heart Rate Present Fetus Movement Comments Flowsheet Date 02/09/2023 Tobias Score Blood Edema Fundus Height Fundus Units Glucose Ketones Leukocytes Nitrite Labor Signs Protein Cervic Dilation Cervic Effacement Cervic Station neg none none trace Type Weight in lbs Pre/Post Dialysis Refused Weight 264.521066241377 BP Diastolic BP Location Tested BP Systolic BP Type 89 136 Fetus Heart Rate Present Fetus Movement A Yes Comments patient states that having s ome acid reflux. pepcid and tums ok, planning tdap, preadmission scheduled. efw 51%, reviewed precautions and education, follo up one week Flowsheet Date 02/16/2023 Tobias Score Blood Edema Fundus Height Fundus Units Glucose Ketones Leukocytes Nitrite Labor Signs Protein Cervic Dilation Cervic Effacement Cervic Station Type Weight in lbs Pre/Post Dialysis Refused BP Diastolic BP Location Tested BP Systolic BP Type Fetus Heart Rate Present Fetus Movement Comments Flowsheet Date 02/16/2023 Tobias Score Blood Edema Fundus Height Fundus Units Glucose Ketones Leukocytes Nitrite Labor Signs Protein Cervic Dilation Cervic Effacement Cervic Station Type Weight in lbs Pre/Post Dialysis Refused BP Diastolic BP Location Tested BP Systolic BP Type Fetus Heart Rate Present Fetus Movement Comments Flowsheet Date 02/16/2023 Tobias Score Blood Edema Fundus Height Fundus Units Glucose Ketones Leukocytes Nitrite Labor Signs Protein Cervic Dilation Cervic Effacement Cervic Station neg none none trace Type Weight in lbs Pre/Post Dialysis Refused Weight 334.123956245877 BP Diastolic BP Location Tested BP Systolic BP Type 102 143 Fetus Heart Rate Present Fetus Movement A Yes Comments doing well, has preadmit mikael eduled. bpp 03/13 , precautions reviewed, planning TDAP Flowsheet Date 02/23/2023 Tobias Score Blood Edema Fundus Height Fundus Units Glucose Ketones Leukocytes Nitrite Labor Signs Protein Cervic Dilation Cervic Effacement Cervic Station Type Weight in lbs Pre/Post Dialysis Refused BP Diastolic BP Location Tested BP Systolic BP Type Fetus Heart Rate Present Fetus Movement Comments Flowsheet Date 02/23/2023 Tobias Score Blood Edema Fundus Height Fundus Units Glucose Ketones Leukocytes Nitrite Labor Signs Protein Cervic Dilation Cervic Effacement Cervic Station Type Weight in lbs Pre/Post Dialysis Refused BP Diastolic BP Location Tested BP Systolic BP Type Fetus Heart Rate Present Fetus Movement Comments Flowsheet Date 02/23/2023 Tobias Score Blood Edema Fundus Height Fundus Units Glucose Ketones Leukocytes Nitrite Labor Signs Protein Cervic Dilation Cervic Effacement Cervic Station neg trace none trace Type Weight in lbs Pre/Post Dialysis Refused Weight 264.323448945543 BP Diastolic BP Location Tested BP Systolic BP Type 91 155 88 140 Fetus Heart Rate Present Fetus Movement A Yes Comments patient is having some swell ing. bp's at home 130/80's, will monitor over the weekend, check labs, last week pressure at home 130/80's and had just taken procardia prior to arrival, precautions reviewed, bpp 03/13 disc iol around 03/20 Flowsheet Date 03/02/2023 Tobias Score Blood Edema Fundus Height Fundus Units Glucose Ketones Leukocytes Nitrite Labor Signs Protein Cervic Dilation Cervic Effacement Cervic Station Type Weight in lbs Pre/Post Dialysis Refused BP Diastolic BP Location Tested BP Systolic BP Type Fetus Heart Rate Present Fetus Movement Comments Flowsheet Date 03/02/2023 Tobias Score Blood Edema Fundus Height Fundus Units Glucose Ketones Leukocytes Nitrite Labor Signs Protein Cervic Dilation Cervic Effacement Cervic Station Type Weight in lbs Pre/Post Dialysis Refused BP Diastolic BP Location Tested BP Systolic BP Type Fetus Heart Rate Present Fetus Movement Comments Flowsheet Date 03/02/2023 Tobias Score Blood Edema Fundus Height Fundus Units Glucose Ketones Leukocytes Nitrite Labor Signs Protein Cervic Dilation Cervic Effacement Cervic Station neg trace none trace Type Weight in lbs Pre/Post Dialysis Refused Weight 269.759515431420 BP Diastolic BP Location Tested BP Systolic BP Type 81 129 Fetus Heart Rate Present Fetus Movement A Yes Comments patient is having some heart burn and swelling. cervidil scheduled 03/20 at 4 pm, gbs done today bpp 03/13, precautions reviewed f/u one week Flowsheet Date 03/09/2023 Tobias Score Blood Edema Fundus Height Fundus Units Glucose Ketones Leukocytes Nitrite Labor Signs Protein Cervic Dilation Cervic Effacement Cervic Station Type Weight in lbs Pre/Post Dialysis Refused BP Diastolic BP Location Tested BP Systolic BP Type Fetus Heart Rate Present Fetus Movement Comments Flowsheet Date 03/09/2023 Tobias Score Blood Edema Fundus Height Fundus Units Glucose Ketones Leukocytes Nitrite Labor Signs Protein Cervic Dilation Cervic Effacement Cervic Station Type Weight in lbs Pre/Post Dialysis Refused BP Diastolic BP Location Tested BP Systolic BP Type Fetus Heart Rate Present Fetus Movement Comments Flowsheet Date 03/09/2023 Tobias Score Blood Edema Fundus Height Fundus Units Glucose Ketones Leukocytes Nitrite Labor Signs Protein Cervic Dilation Cervic Effacement Cervic Station neg none none trace Type Weight in lbs Pre/Post Dialysis Refused Weight 267.336040118234 BP Diastolic BP Location Tested BP Systolic BP Type 85 135 Fetus Heart Rate Present Fetus Movement A Yes Comments patient had a headache yeste rday resolved on its own, precautions reviewed EFW 81%, got a car seat! registration mirza f/u one week Flowsheet Date 03/16/2023 Tobias Score Blood Edema Fundus Height Fundus Units Glucose Ketones Leukocytes Nitrite Labor Signs Protein Cervic Dilation Cervic Effacement Cervic Station Type Weight in lbs Pre/Post Dialysis Refused BP Diastolic BP Location Tested BP Systolic BP Type Fetus Heart Rate Present Fetus Movement Comments Flowsheet Date 03/16/2023 Tobias Score Blood Edema Fundus Height Fundus Units Glucose Ketones Leukocytes Nitrite Labor Signs Protein Cervic Dilation Cervic Effacement Cervic Station Type Weight in lbs Pre/Post Dialysis Refused BP Diastolic BP Location Tested BP Systolic BP Type Fetus Heart Rate Present Fetus Movement Comments Flowsheet Date 03/16/2023 Tobias Score Blood Edema Fundus Height Fundus Units Glucose Ketones Leukocytes Nitrite Labor Signs Protein Cervic Dilation Cervic Effacement Cervic Station neg trace none trace Type Weight in lbs Pre/Post Dialysis Refused Weight [id number] BP Diastolic BP Location Tested BP Systolic BP Type 70 131 Fetus Heart Rate Present Fetus Movement A Yes Comments patient is having swelling. cervix FT/open on outside to 2 cm funnels to FT/40/- 2, precautions reviewed, has IOL scheduled bpp today with NST Flowsheet Date 03/30/2023 Tobias Score Blood Edema Fundus Height Fundus Units Glucose Ketones Leukocytes Nitrite Labor Signs Protein Cervic Dilation Cervic Effacement Cervic Station Type Weight in lbs Pre/Post Dialysis Refused Weight [id number] BP Diastolic BP Location Tested BP Systolic BP Type 107 126 90 130 Fetus Heart Rate Present Fetus Movement Comments Menstrual History Last Menstrual Date Menses Monthly On Bcp Conception Prior Menses Frequency Hcg Plus Date Menarche Onset Age 896/26/2022 Genetic Screening And Infection History Question Response Note Mental Retardation/Autism false Patient's Age Will Be 35 Years Or Older At Estim ated Date of Delivery false Thalassemia (Vietnamese, Arabic, Mediterranean, Or Background): MCV < 80 false Neural Tube Defect (Meningomyelocele, Spina Bifi da, Or Anencephaly) false Congenital Heart Defect false Down Syndrome false Jeyson-Sachs (eg, Buddhist, Cajun, Korean-Maltese) f alse Laura Disease false Sickle Cell Disease Or Trait () false Hemophilia Or Other Blood Disorders false Muscular Dystrophy false Cystic Fibrosis false Altaf's Chorea false Intellectual Disability/Autism false If Yes, Was Person Tested For Fragile X? false Other Inherited Genetic Or Chromosomal Disorder false Maternal Metabolic Disorder (eg, Type 1 Diabetes , PKU) false Patient Or Baby's Father Had A Child With Defects Not Listed Above false Recurrent Loss, Or A Stillbirth false Medications (including Suppl ements, Vitamins, Herbs, OTC Drugs), Illicit/Recreational Drugs, Alcohol false If Yes, Agent(s) And Strength/Dosage false Any Other Genetic History false Live With Someone With TB Or Exposed To TB false Patient Or Partner Has History Of Genital Herpes false Rash Or Viral Illness Since Last Menstrual Perio d false History Of STD, Gonorrhea, Chlamydia, HPV, Syphi lis false Other Infection History false History of HIV false History of Hepatitis false Prior GBS-infected child false Hemoglobinopathy Or Carrier false Other Structural Defect false Recent Travel History Outside of Country false Delivery Information Delivery Date Delivery Type Labor Anesthesia Weeks Gestation Incision Type Labor Labor Length Hrs Delivered By Post Complications Tubal Sterilization Discharge Date Comments 3 Induce d Regional-Ep idural 38.4 false Merly Gilmore CNM CHTN, prolonged ROM, Acid reflux, Asthma, HPV, Placenta circumval karl, Spinal muscular atrophy carrier Discharge Information Feeding Method Contraceptive Method Maternal HG B and HCT Levels
--- OUTSIDE RECORDS SUMMARY | 2025-07-23 12:43 | XMS_ITS | Encounter Summary ---
Author Organization [facility] Address [address] [place] [address] Phone Care Team Providers Care Appointment Setter Name Role Phone Dawit Maldonado MD Primary Care Provider [phone] Reason for Visit * Reason Onset Date Comments Medication Refill 01/09/2022 Encounter Details Date Type Department Care Team ([facility] st Contact Info) Description 01/09/2022 Telephone [facility] [address] [place] [address] Dawit Maldonado MD [address] [place] [id number] Medication Refill Social History Tobacco Use [...] on file documented as of this encounter Miscellaneous Notes * Telephone Encounter - Kimmie Grey LPN - 01/13/2022 12:09 PM CDT Requested Prescriptions Signed Prescriptions Disp Refills ??? fluticasone-vilanterol (Breo Ellipta) 100-25 MCG/INH AEROSOL POWDER, BREATH ACTIVATED 60 Each 0 Sig: Inhale one puff by mouth daily Authorizing Provider: DAWIT MALDONADO Ordering User: BRIT NICHOLS Pt needs to make appointment * Telephone Encounter - Brit Nichols CMA - 01/10/2022 3:02 PM CDT [facility] * Telephone Encounter - Dawit Maldonado MD - 01/09/2022 5:27 PM CDT MADELINE to fill for 2 mos, but needs an appt with [facility] * Telephone Encounter - Ofelia Mitchell LPN - 01/09/2022 1:17 PM CDT Last appt 11/03/2020 with [facility]ka for pap, pt no showed in April for [address] Chung to fill? No appt scheduled at this time * Telephone Encounter - Amaya Arreguin - 01/09/2022 12:49 PM CDT Please refill Brio and send to [facility] in [facility] : [address], [place] [address] documented in this encounter Plan of Treatment Not on file documented as of this encounter Visit Diagnoses Not on filedocumented in this encounter Additional Health Concerns Assessment Noted Time PHQ-9 Depression Total Score: 0 11/04/19 21 3:00 PM CDT documented as of this encounter Care Teams Appointment Setter Relationship Specialty Start Date End Date Dawit Maldonado MD [address] [place] [id number] PCP - General Internal Medicine 01/18/18 documented as of this encounter
--- OUTSIDE RECORDS SUMMARY | 2025-07-23 12:43 | XMS_ITS | Clinical Summary ---
Author Organization [facility] Address [address] [place] [address] Phone Care Team Providers Care Burial Vault Setter Name Role Phone Marvin Schuler MD Primary Care Provider [phone]- [phone] Allergies Active Allergy Reactions Criticality Noted Date Comments Sulfamethoxazole-Trimethoprim Hives High 2020 Medications LORATADINE PO Take by mouth. A ctive meloxicam (MOBIC) 7.5 MG Tablet Take 1 Tab by mouth daily. 30 Tab 0 Active lisinopril-hydro CHLOROthiazide (PRINZIDE, ZESTORETIC) 20-12.5 MG TabletIndication s:Essential hypertension Take 1 tab by mouth once daily 30 Tablet 12 1 Active Ventolin HFA 108 (90 Base) MCG/ACT Aerosol Solution INHALE 2 PUFFS BY MOUTH EVERY 4 HOURS NEEDED FOR WHEEZING 18 g 1 Active spironolactone (ALDACTONE) 25 MG Tablet Take 25 mg by mouth daily. 1 Active Tri-Sprintec 0.18/0.215/0.25 MG-35 MCG Tablet Take 1 tablet by mouth daily 28 Tablet 2 Active Fluticasone Furoate-Vilanter ol (Breo Ellipta) 100-25 MCG/ACT AEROSOL POWDER, BREATH ACTIVATED INHALE 1 PUFF BY MOUTH ONCE DAILY. NEED APPOINTMENT BEFORE NEXT REFILL. 60 Each 3 Active Active Problems No known active problems Immunizations Immunization Administration Dates Next Due Covid-19, Mrna, Lnp-s, PF, 1 00 mcg/0.5 mL Dose (Moderna) 10/09/2020 DTAP VACCINE 01/27/1998 DTP Vaccine 11/08/1993, 3,1992,1992 Hepatitis B Vaccine, Pediatric/adolescent 02/22/1993,1992,1992 Hib Vaccine,unspecified Formulation 12/1993,02/22/1993,1992,1992 MMR Vaccine 01/27/1998,11/08/1993 OPV 01/27/1998, 4,1992,1992 Family History Medical History Relation Name Comments Hypertension Father Diabetes Mother Thyroid Disease Mother Relation Name Status Comments Father Alive Mother Alive Social History Tobacco Use Types Packs/Day Years [...] on file Sexual Orientation Not on file Last Filed Vital Signs Vital Sign Reading Time Taken Comments Blood Pressure 124/76 11/03/2020 3:16 PM CDT Pulse 122 11/03/2020 3:16 PM CDT Temperature 36.5 C (97.7 F) 06/01/2019 10:15 AM CDT Respiratory Rate 20 07/16/2019 1:51 PM CHEMISTRY QUALITY CONTROL ANALYST Oxygen Saturation 99% 11/03/2020 3:16 PM CDT Inhaled Oxygen Concentration - - Weight 108.9 kg (240 lb) 11/03/2020 3:16 PM CDT Height 162.6 cm (5' 4) 11/03/2020 3:16 PM CDT Body Mass Index 41.2 11/03/2020 3:16 PM CDT Plan of Treatment Health Maintenance Due Date Last Done Comments DTaP/Tdap/Td Immunization (6 - Tdap) 2003 01/27/1998, 11/08/1993, 02/22/1993, Additional history exists Varicella Immunization (1 of 2 - 13+ 2-dose series) 2005 HPV/Cotest 2022 Cervical Cancer Screening (CCS) 11/04/2023 Pap Smear 11/04/2023 11/03/2020, 11/03/2020 Influenza Immunization (#1) 2025 SARS-COV-2 Immunization ( season) 2025 11/16/2020, 10/09/2020 Respiratory Syncytial Virus (RSV) Immunization (Adult) (1 - 1-dose 75+ series) 2067 Hepatitis B Immunization Completed 993, 1992, 1992 Hepatitis C Virus (HCV) Screening Completed 10/28/2020 Human Papillomavirus (HPV) Immunization (No Doses Required) Completed Meningococcal Immunization (ACWY) Aged Out No longer eligible based on patient's age to complete this topic Pneumococcal Immunization Combined Aged Out No longer eligible based on patient's age to complete this topic Rotavirus Immunization Aged Out No lo nger eligible based on patient's age to complete this topic Procedures Procedure Name Priority Date/Time Associated Diagnosis Comments PATHOLOGY CYTOLOGY BRUISE TRIMMER Routine 11/03/2020 3:51 PM CDT Screening examination for STD (sexually transmitted disease) HEPATITIS C AB QUAL, DM Routine 10/28/2020 1:15 PM CDT Screen for STD (sexually transmitted disease) from Last 3 Months or Most Recently Relevant to Health Maintenance Results * PATHOLOGY CYTOLOGY BRUISE TRIMMER (11/03/2020 3:51 PM CDT) SPECIMEN ADEQUACY Satisfactory for evaluation. 11/04/2020 8:51 AM CDT [facility] GENERAL CATEGORY NEGATIVE FOR INTRAEPITHELIAL LESIONS OR MALIGNANCY. 11/04/2020 8:51 AM CDT [facility] DESCRIPTIVE DIAGNOSIS NEGATIVE FOR INTRAEPITHELIAL LESIONS OR MALIGNANCY. 11/04/2020 8:51 AM T [facility] at 0851 CDT HPV Reflex if ASCUS? Yes 11/04/2020 8:51 AM T [facility] Clinical Information Screening for STD - Z11.3 Received in a Sure Path vial. 11/04/2020 8:51 AM CDT [facility] Disclaimer The PAP smear is a screening test designed to detect cancerous or precancerous cells of the uterine cervix. It is one of the best means available for detection of cervical cancer but still carries an inherent false-negative rate. The consequences of a false-negative PAP result can be minimized by adhering to current screening guidelines. The following are general guidelines recommended by the ACS, ASCP, ASCCP, and ACOG: PAP testing is recommended every three years for women 21-29, Co-Testing, a PAP test in conjunction with an HPV (Human Papillomavirus) test for women ages 30-65, and no PAP or HPV testing for women under the age of 21 or older than 65 unless clinically indicated. 11/04/2020 8:51 AM CDT [facility] Other CERVIX UTERI STRUCTURE / Unknown Non-Phlebotomy Collection / Unknown 11/03/2020 3:51 PM CDT 11/03/2020 3:51 PM CDT us Waleska Beatty APRN, CNP PATHOLOGY/CYTOLOGY ORDE LARISSA Final Result [address] [address] * HEPATITIS C AB [facility] (10/28/2020 1:15 PM CDT) HCV QUALITATIVE Negative Negative 6:25 PM CDT [facility] Blood Venipuncture / Unknown 10/28/2020 1:15 PM CDT 10/28/2020 1:15 PM CDT us Marvin Schuler MD CHEMISTRY ORDERABLES Final Result Performing Organization Address [facility]/ZIP Co de Phone Number [address] [address] from Last 3 Months or Most Recently Relevant to Health Maintenance Insurance [facility] Care Teams Burial Vault Setter Relationship Specialty Start Date End Date Marvin Schuler MD [address] [place] [id number] PCP - General Internal Medicine 01/18/18
[2025-07-23 18:42] LABS: Hematocrit 41.9 % (37.0-47.0); Hemoglobin 13.6 g/dL (12.0-15.0); Immature Granulocyte Percent A 0.6 % (0-0.5); Lymphocytes Absolute Auto 2.33 K/mm3 (0.9-3.2); Mean Corpuscular HGB Conc 32.5 g/dl (32-36); Mean Corpuscular Hemoglobin 29.1 pg (26-34); Mean Corpuscular Volume 89.5 fl (80-100); Nucleated Red Blood Cells Absolute Auto 0.000 K/mm3 (0.0-0.012); Nucleated Red Blood Cells Perc 0.0 % (0.0-0.2); Platelet Count Result 379 k/mm3 (150-375); Red Blood Count 4.68 M/mm3 (4.2-5.4); White Blood Count 10.1 K/mm3 (4.5-10.0)
[2025-07-23 18:52] LABS: Alanine Aminotransferase 24 U/L (6-35); Albumin Level 4.5 g/dL (3.5-5.1); Alkaline Phosphatase 91 U/L (38-126); Anion Gap 8 mmol/L (4-12); Aspartate Amino Transferase 50 U/L (14-36); Bilirubin,Total 0.5 mg/dL (0.2-1.3); Blood Urea Nitrogen 13 mg/dL (7-17); Calcium 9.3 mg/dL (8.4-10.2); Carbon Dioxide 24 mmol/L (22-30); Chloride 104 mmol/L (98-107); Cholesterol 169 mg/dL (0-200); Estimated Glomerular Filt Rate > 60; Glucose 86 mg/dL (65-110); HDL Direct 43 mg/dL; Potassium 4.1 mmol/L (3.4-5.0); Sodium 136 mmol/L (137-145); Total Protein 8.0 g/dL (6.3-8.2); Triglycerides 115 mg/dL (<150)
[2025-07-23 19:08] LABS: Free T4 Free Thyroxine 0.98 ng/dL (0.78-2.19)
[2025-07-23 19:28] LABS: Thyroid Stimulating Hormone 2.700 uIU/mL (0.465-4.680)
[2025-07-23 19:39] LABS: Hemoglobin A1C 5.2 % (<5.7)
== END 2025-07-23 11:27 | disposition home or self-care (01) ==
LOC: ANHGOSHLAB 11:27
PROVIDERS: PCP Family Medicine; Visit Provider Family Medicine
DX: Z00.00 Encounter for general adult medical examination without abnormal findings (principal); I10 Essential (primary) hypertension; E66.01 Morbid (severe) obesity due to excess calories; Z68.43 Body mass index [BMI] 50.0-59.9, adult; E55.9 Vitamin D deficiency, unspecified; R73.9 Hyperglycemia, unspecified; R53.83 Other fatigue; E78.2 Mixed hyperlipidemia
CPT/HCPCS: 36415; 80053; 80061; 82306; 83036; 84439; 84443; 85025